=== PATIENT | female | born 1940 | race Caucasian/White ===

== ENCOUNTER 2018-09-21 08:16 | Observation (INO) | payer MEDICARE, OTHER ==
[2018-09-21] VITALS (9 sets, daily range): BP systolic 87–124; BP diastolic 47–87
[~2018-09-21] VITALS: Ht 170.2 cm; Wt 59.0 kg
--- OUTSIDE RECORDS SUMMARY | 2018-09-21 08:22 | XMS REPORT | Continuity of Care Document ---
Author Organization Unknown Address Unknown Allergies There is no data. Medications There is no data. Problems There is no data. Procedures Code Description Performed By Performed On [id number] CONSULT TO CARE PROGRESSION 08/04/2018 [id number] NOTIFY PHYSICIAN 08/04/2018 NUR6 ACTIVITY ORDER 08/04/2018 UVE271 BLADDER SCANNING ALGORITHM 08/04/2018 COD2 FULL CODE 08/04/2018 DIET24 DIET 08/04/2018 WSS343 NURSING COMMUNICATION 08/04/2018 ADT70 ADMIT TO SWING BED 08/04/2018 [id number] CONSULT TO CARE PROGRESSION 08/04/2018 DEF545 REASON FOR NO VTE PROPHYLAXIS - PHARMACOLOGICAL 08/04/2018 HZS707 REASON FOR NO VTE PROPHYLAXIS - MECHANICAL 08/04/2018 NUE034 NURSING COMMUNICATION 08/04/2018 PJR900 DAILY WEIGHTS 08/04/2018 OT1 OT EVAL AND TREAT 08/04/2018 PT4 PT EVAL AND TREAT 08/04/2018 SLP2 BLOCKER HEATED METAL FORMS EVAL AND TREAT 08/04/2018 DNS1 DIETARY NUTRITION SUPPLEMENTS 08/04/2018 HFS642 VITAL SIGNS 08/05/2018 DNS1 DIETARY NUTRITION SUPPLEMENTS 08/05/2018 [id number] BASIC METABOLIC PANEL 08/05/2018 AXR774 DIAGNOSIS QUERY 08/05/2018 DNS1 DIETARY NUTRITION SUPPLEMENTS 08/05/2018 DNS1 DIETARY NUTRITION SUPPLEMENTS 08/05/2018 DNS1 DIETARY NUTRITION SUPPLEMENTS 08/06/2018 DNS1 DIETARY NUTRITION SUPPLEMENTS 08/06/2018 DNS1 DIETARY NUTRITION SUPPLEMENTS 08/06/2018 DNS1 DIETARY NUTRITION SUPPLEMENTS 08/07/2018 DNS1 DIETARY NUTRITION SUPPLEMENTS 08/07/2018 DNS1 DIETARY NUTRITION SUPPLEMENTS 08/07/2018 DNS1 DIETARY NUTRITION SUPPLEMENTS 08/08/2018 DNS1 DIETARY NUTRITION SUPPLEMENTS 08/08/2018 DNS1 DIETARY NUTRITION SUPPLEMENTS 08/08/2018 DNS1 DIETARY NUTRITION SUPPLEMENTS 08/09/2018 DNS1 DIETARY NUTRITION SUPPLEMENTS 08/09/2018 DNS1 DIETARY NUTRITION SUPPLEMENTS 08/09/2018 DNS1 DIETARY NUTRITION SUPPLEMENTS 08/10/2018 DNS1 DIETARY NUTRITION SUPPLEMENTS 08/10/2018 DNS1 DIETARY NUTRITION SUPPLEMENTS 08/10/2018 DNS1 DIETARY NUTRITION SUPPLEMENTS 08/11/2018 DNS1 DIETARY NUTRITION SUPPLEMENTS 08/11/2018 DNS1 DIETARY NUTRITION SUPPLEMENTS 08/11/2018 [id number] BASIC METABOLIC PANEL 08/11/2018 DNS1 DIETARY NUTRITION SUPPLEMENTS 08/12/2018 DNS1 DIETARY NUTRITION SUPPLEMENTS 08/12/2018 DNS1 DIETARY NUTRITION SUPPLEMENTS 08/12/2018 DNS1 DIETARY NUTRITION SUPPLEMENTS 08/13/2018 UDV450 NOTIFY PHYSICIAN 08/13/2018 ZLN161 HEIGHT AND WEIGHT 08/13/2018 EVA103 VITAL SIGNS 08/13/2018 LPB706 APPLY WARMING BLANKET 08/13/2018 [id number] STONE ANALYSIS URINARY 08/13/2018 [id number] STONE ANALYSIS URINARY 08/13/2018 ADT8 DISCHARGE PATIENT 08/13/2018 OMB189 MEASURE BLOOD PRESSURE 08/13/2018 LQX926 VITAL SIGNS 08/13/2018 FVD589 NOTIFY PHYSICIAN 08/13/2018 QLU932 NURSING COMMUNICATION 08/13/2018 HVN720 NURSING OXYGEN ORDERS/INSTRUCTIONS 08/13/2018 AOK110 CONTINUOUS PULSE OXIMETRY 08/13/2018 DCO921 APPLY WARMING BLANKET 08/13/2018 KFU970 GLUCOSE POC 08/13/2018 DNS1 DIETARY NUTRITION SUPPLEMENTS 08/13/2018 [id number] CANDIDO RECOMMENDATION ORDER 08/13/2018 XET570 NURSING COMMUNICATION 08/13/2018 QOB1974 URINALYSIS REFLEX 08/13/2018 VUS0111 CULTURE, URINE 08/14/2018 WEK9673 URINALYSIS REFLEX 08/14/2018 FMG7892 URINALYSIS MICROSCOPIC ONLY 08/14/2018 DNS1 DIETARY NUTRITION SUPPLEMENTS 08/14/2018 [id number] CBC AND DIFF (MANUAL DIFF IF NECESSARY) 08/14/2018 [id number] COMPREHENSIVE METABOLIC PANEL 08/14/2018 [id number] CBC AND DIFF (MANUAL DIFF IF NECESSARY) 08/14/2018 [id number] COMPREHENSIVE METABOLIC PANEL 08/14/2018 DNS1 DIETARY NUTRITION SUPPLEMENTS 08/14/2018 COD2 FULL CODE 08/14/2018 [id number] CBC AND DIFF (MANUAL DIFF IF NECESSARY) 08/14/2018 [id number] CULTURE, BLOOD 08/14/2018 ZLR5453 CULTURE, BLOOD 08/14/2018 DNS1 DIETARY NUTRITION SUPPLEMENTS 08/14/2018 DNS1 DIETARY NUTRITION SUPPLEMENTS 08/15/2018 [id number] CBC AND DIFF (MANUAL DIFF IF NECESSARY) 08/15/2018 DNS1 DIETARY NUTRITION SUPPLEMENTS 08/15/2018 DNS1 DIETARY NUTRITION SUPPLEMENTS 08/15/2018 DNS1 DIETARY NUTRITION SUPPLEMENTS 08/16/2018 DNS1 DIETARY NUTRITION SUPPLEMENTS 08/16/2018 DNS1 DIETARY NUTRITION SUPPLEMENTS 08/16/2018 [id number] BASIC METABOLIC PANEL 08/17/2018 HKR0493 CBC AND DIFF (MANUAL DIFF IF NECESSARY) 08/17/2018 DNS1 DIETARY NUTRITION SUPPLEMENTS 08/17/2018 DNS1 DIETARY NUTRITION SUPPLEMENTS 08/17/2018 DNS1 DIETARY NUTRITION SUPPLEMENTS 08/17/2018 [id number] BASIC METABOLIC PANEL 08/18/2018 CWI0186 CBC AND DIFF (MANUAL DIFF IF NECESSARY) 08/18/2018 DNS1 DIETARY NUTRITION SUPPLEMENTS 08/18/2018 DNS1 DIETARY NUTRITION SUPPLEMENTS 08/18/2018 DNS1 DIETARY NUTRITION SUPPLEMENTS 08/18/2018 DNS1 DIETARY NUTRITION SUPPLEMENTS 08/19/2018 DNS1 DIETARY NUTRITION SUPPLEMENTS 08/19/2018 DIET24 DIET 08/19/2018 VWN767 ACTIVITY TOLERATED 08/19/2018 FFG530 FOLLOW UP PRIMARY PHYSICIAN 08/19/2018 MFP400 NURSING COMMUNICATION 08/19/2018 PQV090 PATIENT MAY SHOWER 08/19/2018 XZV811 DISCHARGE FOLLOW UP 08/19/2018 ADT8 DISCHARGE PATIENT 08/19/2018 Results Test Result Range STONE ANALYSIS URINARY - 08/13/18 09:54 Disclaimer: Comment NRG Stone Ca oxalate monohydr 55 NRG Stone Calcium phosphate 35 NRG Stone Color Maldonado NRG Stone Comment Comment NRG Stone Composition Comment NRG Stone MG radhika phos 10 NRG Stone Nidus No Nidus visualized NRG Stone Comment Comment NRG Stone Size Comment NRG Stone Weight 116.1 NRG URINALYSIS REFLEX - 08/14/18 01:55 APPEARANCE, URINE Yellow NRG GLUCOSE URINE Negative Negative BILIRUBIN URINE Negative Negative KETONES URINE Negative Negative SPECIFIC GRAVITY UA 1.010 TX 1.001-1.030 HEMOGLOBIN URINE Large Negative PH URINE 7.0 TX 5.0-8.0 PROTEIN URINE QUAL >300 Negative UROBILINOGEN URINE Negative Negative NITRITE URINE Negative Negative LEUKOCYTE ESTERASE Positive Negative URINALYSIS MICROSCOPIC ONLY - 08/14/18 01:55 MICROSCOPIC RBC URINE 6 - 10 0-5 MICROSCOPIC WBC URINE >40 0-5 EPITHELIAL CELLS Small Absent HYALINE CAST Absent Absent BACTERIA Absent Absent COMPREHENSIVE METABOLIC PANEL - 08/14/18 09:05 Alanine Aminotransferase 25 0-34 Albumin 3.4 3.5-5.0 Alkaline Phosphatase 112 42-140 Aspartate Aminotransferase 59 15-46 Blood Urea Nitrogen 23 7-26 Chloride 102 96-112 Carbon Dioxide 24 20-32 Creatinine 1.1 0.4-1.1 Glucose 186 70-100 Potassium 3.8 3.5-5.3 Sodium 136 133-147 Calcium 9.1 8.4-10.5 Anion Gap 11 TX 5-17 Protein Total Serum 6.5 6.0-8.2 BILIRUBIN TOTAL 1.3 0.2-1.3 GFR FEMALE AA 58 60-200 GFR FEMALE NON-AA 48 60-200 CBC AND DIFF (MANUAL DIFF IF NECESSARY) - 08/14/18 09:05 WBC 22.10 4.00-11.00 Hematocrit 36 36-45 Hemoglobin 11.5 12.0-15.0 MCH 27 27-34 MCHC 32 32-36 MCV 85 80-99 MPV 9.3 9.4-12.3 Platelet Count 285 140-400 RBC 4.19 4.00-5.00 RDW 17.4 9.0-14.5 % NEUTROPHILS 92 45-78 %LYMPHOCYTES 3 15-47 %MONOCYTES 4 0-12 %EOSINOPHILS 1 0-7 %BASOPHILS 0 0-2 # GRANULOCYTES 20.38 1.70-6.80 # LYMPHOCYTES 0.63 1.00-3.30 # MONOCYTES 0.81 0.20-0.90 # EOSINOPHILS 0.24 0.00-0.40 # BASOPHILS 0.04 0.00-0.10 CULTURE, BLOOD - 08/14/18 12:11 Culture result No Growth at 5 days NRG CULTURE, BLOOD - 08/14/18 12:35 Culture result No Growth at 5 days NRG CBC AND DIFF (MANUAL DIFF IF NECESSARY) - 08/15/18 05:25 WBC 12.96 4.00-11.00 Hematocrit 31 36-45 Hemoglobin 9.8 12.0-15.0 MCH 27 27-34 MCHC 32 32-36 MCV 85 80-99 MPV 9.1 9.4-12.3 Platelet Count 239 140-400 RBC 3.59 4.00-5.00 RDW 16.9 9.0-14.5 % NEUTROPHILS 78 45-78 %LYMPHOCYTES 8 15-47 %MONOCYTES 10 0-12 %EOSINOPHILS 4 0-7 %BASOPHILS 0 0-2 # GRANULOCYTES 10.09 1.70-6.80 # LYMPHOCYTES 1.01 1.00-3.30 # MONOCYTES 1.34 0.20-0.90 # EOSINOPHILS 0.49 0.00-0.40 # BASOPHILS 0.03 0.00-0.10 CBC AND DIFF (MANUAL DIFF IF NECESSARY) - 08/18/18 03:40 WBC 8.52 4.00-11.00 Hematocrit 34 36-45 Hemoglobin 11.3 12.0-15.0 MCH 28 27-34 MCHC 33 32-36 MCV 85 80-99 MPV 9.3 9.4-12.3 Platelet Count 355 140-400 RBC 4.07 4.00-5.00 RDW 16.5 9.0-14.5 % NEUTROPHILS 72 45-78 %LYMPHOCYTES 13 15-47 %MONOCYTES 9 0-12 %EOSINOPHILS 5 0-7 %BASOPHILS 1 0-2 # GRANULOCYTES 6.16 1.70-6.80 # LYMPHOCYTES 1.10 1.00-3.30 # MONOCYTES 0.77 0.20-0.90 # EOSINOPHILS 0.45 0.00-0.40 # BASOPHILS 0.04 0.00-0.10 BASIC METABOLIC PANEL - 08/18/18 03:40 Blood Urea Nitrogen 30 7-26 Chloride 106 96-112 Carbon Dioxide 27 20-32 Creatinine 0.8 0.4-1.1 Glucose 98 70-100 Potassium 4.1 3.5-5.3 Sodium 140 133-147 Calcium 9.1 8.4-10.5 Anion Gap 7 TX 5-17 GFR FEMALE AA 83 60-200 GFR FEMALE NON-AA 69 60-200 Encounters ACCT No. Visit Date/Time Discharge Status Pt. Type Provider Facility Loc./Unit Complaint [id number] 09/21/2018 08:00:00 ACT Outpatient [facility] [id number] 08/19/2018 14:56:08 08/19/2018 23:59:59 CLS Outpatient [id number] 08/04/2018 13:54:21 08/19/2018 12:53:00 DIS Inpatient SANCHEZ YUSUF MS Hypokalemia [id number] 08/13/2018 07:08:00 08/13/2018 12:25:00 DIS Outpatient CHARU MANNING [facility] LEFT KIDNEY STONE N20.0 [id number] 08/25/2018 10:08:18 Document Registration [id number] 08/20/2018 16:49:13 Document Registration [id number] 08/13/2018 08:39:16 Document Registration
--- OUTSIDE RECORDS SUMMARY | 2018-09-21 08:22 | XMS REPORT | CCD ---
Author Any Curiel Organization [facility] Address [facility] [place] [address] Phone Care Team Providers Care Mixed Livestock Farmer Name Role Phone PP Unavailable CCM Unavailable Summary Purpose Interface Exchange Insurance Providers Payer name Policy type / Coverage type Covered libertarian ID Effective Begin Date Effective End Date WPS Medicare Part B Medicare Part B [id number] Unknown Unknown [facility] Poached [employer] INSUR Medicare Part B [id number] Unknown Unknown Family history Mother Diagnosis Age At Onset Cancer Unknown Father Diagnosis Age At Onset other Unknown Social History Social History Element Codes Description Effective Dates Marital status Unknown 09/08/2018 Number of children Unknown 2 09/08/2018 Employment Unknown Retired 09/08/[address]: 4412665 Quit over 10 years ago 11-04-1991 09/08/[address]: 867667825 Never drinks alcohol 09/08/2018 Allergies, Adverse Reactions, Alerts Substance Reaction Codes Entered Date Inactivated Date Status * NO KNOWN DRUG ALLERGIES Unknown 09/08/2018 No Inactive Date Active Past Medical History Illness Codes Condition Status Onset Date Resolved Date Mixed hyperlipidemia ICD- 9: 272.2 ICD-10: E78.2 Active 09/09/2018 Unknown Mixed incontinence ICD- 9: 788.33 ICD-10: N39.46 Active 09/09/2018 Unknown Multiple sclerosis ICD- 9: 340 ICD-10: G35 Active 09/09/2018 Unknown Personal history of urinary (tract) infections ICD-9: V13.02 ICD-10: Z87.440 Active 09/09/2018 Unknown Problems Condition Codes Effective Dates Condition Status Mixed hyperlipidemia ICD- 9: 272.2 ICD-10: E78.2 09/09/2018 Active Mixed incontinence ICD- 9: 788.33 ICD-10: N39.46 09/09/2018 Active Multiple sclerosis ICD- 9: 340 ICD-10: G35 09/09/2018 Active Personal history of urinary (tract) infections ICD-9: V13.02 ICD-10: Z87.440 09/09/2018 Active Medications Medication Codes Instructions Start Date Stop Date Status Fill Instructions Tylenol 325 mg tablet RxNorm: 345546 -2 Tablet(s) PO Q6 as needed No Start Date Active Colace 100 mg capsule RxNorm: 4290362 1 Capsule(s) PO daily No Start Date Active Boniva 150 mg tablet RxNorm: 712824 1 Tablet(s) PO monthly No Start Date Active atorvastatin 40 mg tablet RxNorm: 503029 1 Tablet(s) PO QHS No Start Date Active Vitamin D2 1,000 unit capsule RxNorm: 308260 1 Capsule(s) PO daily No Start Date Active oxybutynin chloride 5 mg tablet RxNorm: 643680 1 Tablet(s) PO TID No Start Date Active Medication Administered No Medication Administered data Immunizations No Immunization data Assessments Condition Codes Effective Dates Mixed hyperlipidemia ICD-10: E78.2 ICD-9: 272.2 09/09/2018 Personal history of urinary (tract) infections ICD-10: Z87.440 ICD-9: V13.02 09/09/2018 Multiple sclerosis ICD-10: G35 ICD-9: 340 09/09/2018 Mixed incontinence ICD-10: N39.46 ICD-9: 788.33 09/09/2018 Reason For Visit Reason For Visit Effective Dates Notes memory loss 09/09/2018 recurring UTI Results No Results data Review of Systems System Result Effective Dates Constitutional recent illness 09/09/2018 Constitutional No chills 09/09/2018 Constitutional fatigue 09/09/2018 Constitutional No fever 09/09/2018 Constitutional No insomnia 09/09/2018 Constitutional No malaise 09/09/2018 Eyes No vision change 09/09/2018 Ears/Nose/Throat/Neck No dental pain 09/09/2018 Ears/Nose/Throat/Neck No dizziness 09/09/2018 Ears/Nose/Throat/Neck No dysphagia 09/09/2018 Ears/Nose/Throat/Neck No headache 09/09/2018 Ears/Nose/Throat/Neck No hearing loss 09/09/2018 Ears/Nose/Throat/Neck No nasal allergies 09/09/2018 Ears/Nose/Throat/Neck No sore throat 09/09/2018 Ears/Nose/Throat/Neck No postnasal drip 09/09/2018 Ears/Nose/Throat/Neck No sinus congestion 09/09/2018 Cardiovascular No chest pain/pressure 09/09/2018 Cardiovascular No dyspnea 09/09/2018 Cardiovascular No edema 09/09/2018 Cardiovascular No exercise intolerance 09/09/2018 Cardiovascular No fatigue 09/09/2018 Cardiovascular No near-syncope/dizziness 09/09/2018 Respiratory No chest tightness 09/09/2018 Respiratory No cough 09/09/2018 Respiratory No dyspnea 09/09/2018 Respiratory No pedal edema 09/09/2018 Gastrointestinal No abdominal pain 09/09/2018 Gastrointestinal No constipation 09/09/2018 Gastrointestinal No diarrhea 09/09/2018 Gastrointestinal No gastroesophageal reflux 09/09/2018 Gastrointestinal No nausea 09/09/2018 Gastrointestinal No vomiting 09/09/2018 Genitourinary/Nephrology No dysuria 09/09/2018 Genitourinary/Nephrology No nocturia 09/09/2018 Genitourinary/Nephrology No urinary incontinence 09/09/2018 Musculoskeletal No stiffness 09/09/2018 Musculoskeletal No swelling 09/09/2018 Musculoskeletal muscle weakness 09/09/2018 Musculoskeletal No myalgias 09/09/2018 Dermatologic No rash 09/09/2018 Dermatologic sores 09/09/2018 Neurologic No dizziness 09/09/2018 Neurologic No headache 09/09/2018 Neurologic No neck pain 09/09/2018 Neurologic No syncope 09/09/2018 Psychiatric No anxiety 09/09/2018 Psychiatric No depression 09/09/2018 Psychiatric disturbances of memory 09/09/2018 Neurologic memory loss 09/09/2018 Neurologic weakness 09/09/2018 Physical Exam Exam Name System Name Item Name Status Result Effective Dates Notes Full Exam - General 1994 Constitutional general appearance Development: well developed 09/09/2018 None Full Exam - General 1994 Constitutional general appearance Development: appears stated age 0509/09/2018 None Full Exam - General 1994 Constitutional general appearance Hygiene/Attention to Grooming: good hygiene 09/09/2018 None Full Exam - General 1994 Eyes conjunctiva/eyelids Overall: conjunctiva clear 09/09/2018 None Full Exam - General 1994 Eyes conjunctiva/eyelids Overall: cornea clear 09/09/2018 None Full Exam - General 1994 Eyes conjunctiva/eyelids Overall: eyelids normal 09/09/2018 None Full Exam - General 1994 Eyes pupils and irises Overall: pupils equal, round, reactive to light and accomodation 09/09/2018 None Full Exam - General 1994 Ears/Nose/Throat otoscopic exam Overall: external auditory canals clear 09/09/2018 None Full Exam - General 1994 Ears/Nose/Throat lips/teeth/gingiva Overall: benign lips 09/09/2018 None Full Exam - General 1994 Ears/Nose/Throat lips/teeth/gingiva Overall: normal dentition 09/09/2018 None Full Exam - General 1995 Ears/Nose/Throat oral cavity/pharynx/larynx Overall: oral mucosa clear 09/09/2018 None Full Exam - General 1994 Ears/Nose/Throat oral cavity/pharynx/larynx Overall: oropharyngeal mucosa clear 09/09/2018 None Full Exam - General 1994 Ears/Nose/Throat oral cavity/pharynx/larynx Overall: hypopharynx benign 09/09/2018 None Full Exam - General 1994 Ears/Nose/Throat oral cavity/pharynx/larynx Overall: no masses 09/09/2018 None Full Exam - General 1994 Respiratory auscultation Overall: breath sounds clear bilaterally 09/09/2018 None Full Exam - General 1994 Respiratory respiratory effort/rhythm Overall: no retractions 09/09/2018 None Full Exam - General 1994 Respiratory respiratory effort/rhythm Overall: normal rate 09/09/2018 None Full Exam - General 1994 Cardiovascular extremities Overall: no clubbing 09/09/2018 None Full Exam - General 1994 Cardiovascular auscultation of heart Overall: regular rate 09/09/2018 None Full Exam - General 1994 Cardiovascular auscultation of heart Overall: normal heart sounds 09/09/2018 None Full Exam - General 1994 Abdomen abdominal exam Overall: no tenderness 09/09/2018 None Full Exam - General 1994 Abdomen abdominal exam Overall: normal bowel sounds 09/09/2018 None Full Exam - General 1994 Lymphatic neck nodes Overall: anterior cervical chain benign 09/09/2018 None Full Exam - General 1994 Lymphatic neck nodes Overall: posterior cervical chain benign 09/09/2018 None Full Exam - General 1994 Musculoskeletal head and neck Overall: head atraumatic 09/09/2018 None Full Exam - General 1994 Musculoskeletal head and neck Overall: cervical spine benign 09/09/2018 None Full Exam - General 1994 Neurologic cranial nerves Overall: crainial nerves 2 - 12 grossly intact 09/09/2018 None Full Exam - General 1994 Psychiatric orientation/consciousness Overall: oriented to person, place and time 09/09/2018 None Full Exam - General 1994 Psychiatric mood and affect Overall: normal mood and affect 09/09/2018 None Full Exam - General 1994 Musculoskeletal spine, ribs and pelvis Posture: lordosis 09/09/2018 None Full Exam - General 1994 Musculoskeletal spine, ribs and pelvis Posture: kyphosis 09/09/2018 None Full Exam - General 1994 Integument inspection of skin Location: right foot 09/09/2018 small 0.25 cm on dorsum of right foot - healing - larger lesion medially - healing ulceration Full Exam - General 1994 Ears/Nose/Throat otoscopic exam Tympanic membrane: tympanosclerosis 09/09/2018 None Full Exam - General 1994 Constitutional general appearance Assistive Device: wheelchair 09/09/2018 None Procedures No Procedures data Vital Signs Date Vital 09/09/2018 Blood Pressure 1: 136/70 Code: 8480-6 Heart Rate 1: 59 bpm Height: 5'8" SpO2: 98% Weight: Functional Status No Functional Status data History of Present Illness Symptom Name Status Result Effective Date Notes Onset of Symptom during adulthood 09/09/2018 None Quality intermittent 09/09/2018 None Advance Directives No Advance Directive data Encounters Encounter Performer Location Codes Date () OFFICE VISIT, [facility] - LEVEL 4 Diagnosis: Multiple sclerosis[ICD10: G35] Diagnosis: Personal history of urinary (tract) infections[ICD10: Z87.440] Diagnosis: Mixed hyperlipidemia[ICD10: E78.2] Diagnosis: Mixed incontinence[ICD10: N39.46] [facility] CPT- 4: [id number] 09/09/2018 Plan of Care Planned Activity Notes Codes Status Date Visit Plan: Multiple sclerosis - relapsing remitting type of MS - I have recommended patient to continue with institutional care, we need to try to prevent illness/infections as this tends to incite recurrent MS symptoms. Hyperlipidemia - pt has been counseled about appropriate diet, exercise, and need for low fat food choices. I have discussed the need for the patient to take medications as prescribed. If the patient has negative side effects from the medication, they are to CALL the office and not abruptly discontinue the medication without discussion with a practitioner in the office. We will check labs in 3-6 months for follow up on the patient's chronic medical problem and to assure normal liver response to medications. HX of recurrent urinary tract infection - Recommended pt to be started on Trimethoprim 100mg daily - monitor symptoms of recurrent infection - this should help to prevent chronic recurrent infections. Urinary incontinence - discussed with patient and her DTR - no change right now in her medication- we may need to adjust her medications - RX given to dtr for poise pads. 09/09/2018 Patient Education: Patient Medication Summary Completed 09/09/2018 Patient Education: Cholesterol Management Completed 09/09/2018 Instructions Comment . Multiple sclerosis - relapsing remitting type of MS - I have recommended patient to continue with institutional care, we need to try to prevent illness/infections as this tends to incite recurrent MS symptoms. Hyperlipidemia - pt has been counseled about appropriate diet, exercise, and need for low fat food choices. I have discussed the need for the patient to take medications as prescribed. If the patient has negative side effects from the medication, they are to CALL the office and not abruptly discontinue the medication without discussion with a practitioner in the office. We will check labs in 3-6 months for follow up on the patient's chronic medical problem and to assure normal liver response to medications. HX of recurrent urinary tract infection - Recommended pt to be started on Trimethoprim 100mg daily - monitor symptoms of recurrent infection - this should help to prevent chronic recurrent infections. Urinary incontinence - discussed with patient and her DTR - no change right now in her medication- we may need to adjust her medications - RX given to dtr for poise pads.
[2018-09-21] MEDS ORDERED: NITROGLYCERIN 0.4 MG SL TABS BTL 25'S SL PRN (08:45)
[2018-09-21] MEDS ORDERED: ASPIRIN 81 MG CHEW (CHILDREN'S ASA) PO ONE (08:45)
--- NOTE | 2018-09-21 09:06 | Diagnostic Imaging Report ---
INDICATION: Chest pain. TECHNIQUE: Single view chest 8:57 AM. CORRELATION STUDY: None FINDINGS: The heart size, mediastinal configuration and pulmonary vascularity are within normal limits. Lung meadows hyperinflated. Minimal discoid atelectasis and/or scarring about the bilateral lung base. No pulmonary infiltrate. IMPRESSION: 1. Hyperinflated lung meadows. Negative for acute bony abnormality. Dictated by: Dictated on workstation # [id number]
[2018-09-21] MEDS ORDERED: AMOX875T2 (09:08)
[2018-09-21] MEDS ORDERED: IBAN150T8 PO (09:08)
[2018-09-21] MEDS ORDERED: TRIM100T PO (09:08)
[2018-09-21] MEDS ORDERED: NITR100C10 (09:08)
[2018-09-21 09:09] LABS: INR 0.9 (0.8-1.4); PROTHROMBIN TIME PATIENT 12.9 SEC (12.2-14.7)
[2018-09-21 09:16] LABS: BASOPHILS % (AUTO) 0 % (0-10); EOSINOPHILS # (AUTO) 0.1 10^3/uL (0.0-0.3); EOSINOPHILS % (AUTO) 0 % (0-10); HEMATOCRIT 41 % (35-52); HEMOGLOBIN 13.5 G/DL (11.5-16.0); LYMPHOCYTES # (AUTO) 1.1 X 10^3 (1.0-4.0); LYMPHOCYTES % (AUTO) 9 % (12-44); MEAN CORPUSCULAR HEMOGLOBIN 27 PG (25-34); MEAN CORPUSCULAR HGB CONC 33 G/DL (32-36); MEAN CORPUSCULAR VOLUME 81 FL (80-99); MEAN PLATELET VOLUME 9.7 FL (7.4-10.4); MONOCYTES # (AUTO) 0.8 X 10^3 (0.0-1.0); MONOCYTES % (AUTO) 7 % (0-12); NEUTROPHILS # (AUTO) 9.4 X 10^3 (1.8-7.8); NEUTROPHILS % (AUTO) 83 % (42-75); PLATELET COUNT 275 10^3/uL (130-400); RED CELL DISTRIBUTION WIDTH 17.7 % (10.0-14.5); WHITE BLOOD COUNT 11.4 10^3/uL (4.3-11.0)
[2018-09-21] MEDS ORDERED: morphine INJ 10 MG/ML 1ML (SYR OR VIAL) IVP STA ×2 (09:25→09:53)
--- NOTE | 2018-09-21 09:25 | ED Chest Pain ---
General Chief Complaint: Chest Pain Stated Complaint: CHEST PAIN Nursing Triage Note: PT PRESENTS TO ED WITH COMPLAINTS OF CP UNDERNEATH BOTH BREASTS STARTING YESTERDAY. REPORTS IT WAS CONSTANT BUT GOT SIGNIFICANTLY WORSE THIS AM WHEN IT WOKE HER UP FROM SLEEP AT 0400. PT REPORTS INCREASED SOA WELL. Nursing Sepsis Screen: No Definite Risk Source: patient Exam Limitations: no limitations History of Present Illness Date Seen by Provider: September 21, 2018 Time Seen by Provider: 08:40 Initial Comments The patient presents to ER because she woke up this morning with chest pain starting about 5:00 in the morning in her right breast radiating up her right neck. She says it feels like somebody sitting on her chest. She has no history of coronary disease but she did have this same pain and pressure yesterday and she spent most of her time in bed because of it. Yesterday she said it lasted probably less than an hour but would come and go throughout the day. She does not smoke have a history of diabetes or high blood pressure but she does take medicines for cholesterol. No thyroid disorder and no previous workup for coronary disease. She denies sweats nausea vomiting cough shortness of breath or history of lung disease. No GERD or acid reflux. She does have a history of anxiety and her daughter says when they brought her in she became rather anxious and that's when her tingling in fingertips began bilaterally. Allergies and Home Medications Allergies Coded Allergies: No Known Drug Allergies (Unverified , 09/21/18) Patient Home Medication List Home Medication List Reviewed: Yes Review of Systems Review of Systems Constitutional: No chills, No diaphoresis, No malaise EENTM: No Blurred Vision, No Double Vision Respiratory: Denies Cough, Denies Shortness of Air Cardiovascular: See HPI, Chest Pain; Denies Edema, Denies Palpitations; Other (negative for orthopnea) Gastrointestinal: Denies Abdomen Distended, Denies Abdominal Pain Genitourinary: Denies Burning, Denies Discharge Musculoskeletal: No back pain, No joint pain Past Hmggbyw-Yvmegx-Mbcjfa Hx Patient Social History Alcohol Use: Denies Use Recreational Drug Use: No Smoking Status: Former Smoker Former Smoker, Quit: September 24, 1995 Recent Foreign Travel: No Contact w/Someone Who Travel: No Recent Infectious Disease Expo: No Recent Hopitalizations: No Seasonal Allergies Seasonal Allergies: No Past Medical History Surgeries: No Respiratory: No Cardiac: Yes High Cholesterol Neurological: Yes Multiple Sclerosis Genitourinary: Yes UTI-Chronic Gastrointestinal: No Musculoskeletal: Yes Osteoporosis Endocrine: No HEENT: No Cancer: No Psychosocial: No Integumentary: No Blood Disorders: No Physical Exam Vital Signs Vital Signs - First Documented 09/21/18 09/21/18 08:25 08:51 Temp 98.1 Pulse 92 Resp 20 B/P (MAP) 137/101 (113) Pulse Ox 98 O2 Delivery Room Air Capillary Refill : Greater Than 3 Seconds Height, Weight, BMI Height: 5'2.00" Weight: 140lbs. oz. 63.848890sx; BMI Method:Estimated General Appearance: WD/WN, Anxious, Mild Distress HEENT: PERRL/EOMI, Pharynx Normal, Moist Mucous Membranes Neck: Full Range of Motion, Normal Inspection, Non Tender, Supple Respiratory: Chest Non Tender, Lungs Clear, Normal Breath Sounds, No Accessory Muscle Use, No Respiratory Distress Cardiovascular: Regular Rate, Rhythm, No Edema, Normal Peripheral Pulses Gastrointestinal: Normal Bowel Sounds, Non Tender, Soft Neurologic/Psychiatric: Alert, Oriented x3 Skin: Normal Color Progress/Results/Core Measures Results/Orders Lab Results Laboratory Tests Test 09/21/18 08:46 09/21/18 09:08 Range/Units Prothrombin Time 12.9 12.2-14.7 SEC INR Comment 0.9 0.8-1.4 Activated Partial Thromboplast Time 34 24-35 SEC White Blood Count 11.4 H 4.3-11.0 10^3/uL Red Blood Count 5.03 4.35-5.85 10^6/uL Hemoglobin 13.5 11.5-16.0 G/DL Hematocrit 41 35-52 % Mean Corpuscular Volume 81 80-99 FL Mean Corpuscular Hemoglobin 27 25-34 PG Mean Corpuscular Hemoglobin Concent 33 32-36 G/DL Red Cell Distribution Width 17.7 H 10.0-14.5 % Platelet Count 275 130-400 10^3/uL Mean Platelet Volume 9.7 7.4-10.4 FL Neutrophils (%) (Auto) 83 H 42-75 % Lymphocytes (%) (Auto) 9 L 12-44 % Monocytes (%) (Auto) 7 0-12 % Eosinophils (%) (Auto) 0 0-10 % Basophils (%) (Auto) 0 0-10 % Neutrophils # (Auto) 9.4 H 1.8-7.8 X 10^3 Lymphocytes # (Auto) 1.1 1.0-4.0 X 10^3 Monocytes # (Auto) 0.8 0.0-1.0 X 10^3 Eosinophils # (Auto) 0.1 0.0-0.3 10^3/uL Basophils # (Auto) 0.0 0.0-0.1 10^3/uL Sodium Level 139 135-145 MMOL/L Potassium Level 3.7 3.6-5.0 MMOL/L Chloride Level 105 98-107 MMOL/L Carbon Dioxide Level 18 L 21-32 MMOL/L Anion Gap 16 H 5-14 MMOL/L Blood Urea Nitrogen 20 H 7-18 MG/DL Creatinine 0.89 0.60-1.30 MG/DL Estimat Glomerular Filtration Rate > 60 BUN/Creatinine Ratio 22 Glucose Level 103 70-105 MG/DL Calcium Level 9.9 8.5-10.1 MG/DL Corrected Calcium 9.8 8.5-10.1 MG/DL Magnesium Level 2.0 1.8-2.4 MG/DL Total Bilirubin 2.1 H 0.1-1.0 MG/DL Aspartate Amino Transf (AST/SGOT) 50 H 5-34 U/L Alanine Aminotransferase (ALT/SGPT) 14 0-55 U/L Alkaline Phosphatase 123 40-136 U/L Myoglobin 40.0 10.0-92.0 NG/ML Troponin I < 0.028 <0.028 NG/ML B-Type Natriuretic Peptide 18.4 <100.0 PG/ML Total Protein 7.1 6.4-8.2 GM/DL Albumin 4.1 3.2-4.5 GM/DL Lipase 12 8-78 U/L My Orders Orders - ELIS,CARLOS J Cbc With Automated Diff (09/21/18 08:42) Magnesium (09/21/18 08:42) Chest 1 View, Ap/Pa Only (09/21/18 08:42) Ekg Tracing (09/21/18 08:42) Cardiac Profile 1 (09/21/18 08:42) Comprehensive Metabolic Panel (09/21/18 08:42) Myoglobin Serum (09/21/18 08:42) Protime With Inr (09/21/18 08:42) Partial Thromboplastin Time (09/21/18 08:42) O2 (09/21/18 08:42) Monitor-Rhythm Ecg Trace Only (09/21/18 08:42) Lipid Panel (09/22/18 06:00) Ed Iv/Invasive Line Start (09/21/18 08:42) Lipase (09/21/18 08:42) BNP (09/21/18 08:42) Aspirin Chewable Tablet (Baby Aspirin Ch (09/21/18 08:45) Nitroglycerin 0.4 Mg Btl 25's (Nitrostat (09/21/18 08:45) Morphine Injection (Morphine Injection (09/21/18 09:25) Lactated Ringers (Lr 1000 Ml Iv Solution (09/21/18 09:30) Ct Angio Chest W (09/21/18 09:51) Morphine Injection (Morphine Injection (09/21/18 09:53) Fentanyl Injection (Sublimaze Injection (09/21/18 10:15) Iohexol Injection (Omnipaque 350 Mg/Ml 1 (09/21/18 10:15) Received Contrast (Hold Metformin- Contr (09/21/18 10:15) Ns (Ivpb) (Sodium Chloride 0.9%) (09/21/18 10:15) Lorazepam Injection (Ativan Injection) (09/21/18 10:09) Medications Given in ED Current Medications Medications Dose Ordered Sig/Rogelio Route Start Time Stop Time Status Last Admin Dose Admin Aspirin 324 mg ONCE ONCE PO 09/21/18 08:45 09/21/18 08:47 DC 09/21/18 08:56 324 MG Iohexol 125 ml ONCE ONCE IV 09/21/18 10:15 09/21/18 10:16 DC 09/21/18 11:45 125 ML Lactated Ringer's 1,000 ml @ ud STK-MED ONCE IV 09/21/18 09:30 09/21/18 09:35 DC 09/21/18 09:37 999 MLS/HR Lorazepam 2 mg STK-MED ONCE .ROUTE 09/21/18 10:09 09/21/18 10:13 DC 09/21/18 10:23 0.5 MG Nitroglycerin 0.4 mg NEEDED PRN SL 09/21/18 08:45 09/21/18 08:56 0.4 MG Sodium Chloride 250 ml ONCE ONCE IV 09/21/18 10:15 09/21/18 10:16 DC 09/21/18 11:45 80 ML Vital Signs/I&O 09/21/18 09/21/18 08:25 08:51 Temp 98.1 Pulse 92 Resp 20 B/P (MAP) 137/101 (113) Pulse Ox 98 O2 Delivery Room Air Blood Pressure Mean: 113 Progress Progress Note #1: Time: 09:28 Progress Note First dose of nitroglycerin did nothing for her pain so we'll give her 6 mg morphine. Her blood pressure is 112/83. Respiratory vital signs are okay and she has no tachycardia nor hypoxia noted. No history suggesting pulmonary embolism. ED ACS 21 points. Not low risk. This patient is not a candidate for early discharge and should receive a standard chest pain evaluation with delayed troponin testing. Progress Note #2: Time: 12:04 Progress Note Morphine did not help the patient's pain so we gave her another 4 mg of morphine which still did not help. She's having quite a bit of anxiety about being here and so we elected to try half a milligram of Ativan IV instead of more opiates which worked to decrease her anxiety and made her comfortable enough to sleep. Initial troponin negative. CT angiogram was obtained on the ground that she said the pain was radiating through to her back. Did not demonstrate an AAA or pulmonary embolism. A further cardiac workup would be reasonable. Other possibilities include gastrointestinal we did not actually give her a GI cocktail. This could also be having something organic to her back. We discussed the potential hemangioma of the liver and right upper lobe lung nodule with the daughter and the recommendation for repeat CT in 6 months for reevaluation after consultation primary care. Initial ECG Impression Date: September 21, 2018 Initial ECG Impression Time: 08:27 Initial ECG Rate: 76 Initial ECG Rhythm: Normal Sinus Initial ECG Intervals: Normal Initial ECG Impression: Normal, Nonspecific Changes Initial ECG Comparisson: No Previous ECG Available Comment Normal sinus rhythm with left deviated mean electrical axis but no ST elevation or depression. Diagnostic Imaging Diagonstic Imaging: Xray Plain Films/CT/US/NM/MRI: chest Comments [facility] [place], [place] NAME: BIJAL DOSS REC#: [id number] PT STATUS: REG ER : 1940 PHYSICIAN: CARLOS GILLIS MD ADMIT DATE: 09/21/18/ER Draft Date of Exam:09/21/18 CHEST 1 VIEW, AP/PA ONLY INDICATION: Chest pain. TECHNIQUE: Single view chest 8:57 AM. CORRELATION STUDY: None FINDINGS: The heart size, mediastinal configuration and pulmonary vascularity are within normal limits. Lung meadows hyperinflated. Minimal discoid atelectasis and/or scarring about the bilateral lung base. No pulmonary infiltrate. IMPRESSION: 1. Hyperinflated lung meadows. Negative for acute bony abnormality. Dictated on workstation # [id number] Dict: 09/21/18902 Trans: 09/21/18905 [id number] Interpreted by: SRINIVAS WALLACE DO Electronically signed by: Reviewed: Reviewed by Ma Diagonstic Imaging: CT (angiogram) Plain Films/CT/US/NM/MRI: chest Comments NAME: BIJAL DOSS Astley Clarke [facility] REC#: [id number] PHYSICIAN: CARLOS GILLIS MD CC: EDUARD RAHMAN MD; CARLOS GILLIS Page 2 of 2 RADIOLOGY REPORT [facility] [place] [place], [place] CC: EDUARD RAHMAN MD; CARLOS GILLIS Page 1 of 2 RADIOLOGY REPORT NAME: BIJAL DOSS Astley Clarke [facility] REC#: [id number] PT STATUS: REG ER : 1940 PHYSICIAN: CARLOS GILLIS MD ADMIT DATE: 09/21/18/ER Signed Date of Exam: 09/21/18 CT ANGIO CHEST W PROCEDURE: CT angiography of the chest with contrast. TECHNIQUE: Multiple contiguous axial images were obtained through the chest after uneventful bolus administration of intravenous contrast. 2D reconstructed CTA MIP acquisitions were also performed. Auto Exposure Controls were utilized during the CT exam to meet ALARA standards for radiation dose reduction. INDICATION: Chest pain, shortness of breath. Comparison made with a radiograph from earlier in the same day. FINDINGS: There is adequate opacification of the pulmonary arterial system for diagnostic evaluation with no evidence of a filling defect within the pulmonary arteries to suggest embolism. The thoracic aorta demonstrates no evidence of dissection or aneurysm. There is no pericardial collection. There are no pathologically enlarged mediastinal, hilar or axillary lymph nodes. Lungs are hyperinflated with findings of mild centrilobular emphysema. There is a 5 mm nodule within the right upper lobe. There is no focal alveolar infiltrate or consolidation. There is no effusion. There is no pneumothorax. The thyroid demonstrates the left thyroid lobe enlargement with a 1.6 cm thyroid nodule. The visualized portion of the upper abdomen demonstrates a hypervascular lesion within the right hepatic dome measuring 11 mm. There also appears to be hepatic steatosis. There are gallstones within the gallbladder. There is no abnormal biliary dilatation. There is no adrenal mass. The kidneys appear nonobstructed. There is a small hiatal hernia. There is no acute or suspicious osseous abnormality evident. There are multilevel degenerative endplate changes present within the thoracic spine. The alignment is normal and vertebral body heights appear maintained. Impression: 1. No CT angiographic evidence of pulmonary embolism. 2. Thoracic aorta unremarkable. 3. Heart size normal. 4. Centrilobular emphysema with a 5 mm right upper lobe pulmonary nodule. Six-month followup could be considered. 5. Enlarged thyroid with left thyroid nodule. 6. Cholelithiasis without biliary dilatation. 7. Hypervascular lesion within the dome of the right hepatic lobe. 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 This could also be reassessed at the patient six-month followup. 8. No acute or suspicious osseous abnormality. Dictated by: Dictated on workstation # [id number] Dict: 09/21/18 1055 Trans: 09/21/18 1131 Interpreted by: EDUARD RAHMAN MD Electronically signed by: EDUARD RAHMAN MD 09/21/18 1131 Reviewed: Reviewed by Me Departure Communication (Admissions) Time/Spoke to Admitting Phy: 12:10 Discussed the case lab EKG imaging and plan with Dr. Foster and she agrees to observe the patient. Time/Spoke to Consulting Phy: 12:50 Discussed case, lab, imaging, EKG findings with Dr. Stevenson and he agrees to observe the patient. Impression Primary Impression: Chest pain Qualified Codes: R07.9 - Chest pain, unspecified Disposition: 09 ADMITTED INPATIENT Condition: Stable Admissions Decision to Admit Reason: Admit from ER (General) Decision to Admit/Date: September 21, 2018 Time/Decision to Admit Time: 11:30 Departure-Patient Inst. Referrals: ALEXIA STYLES MD (PCP/Family) Primary Care Physician CARLOS GILLIS September 21, 2018 09:25
[2018-09-21] MEDS ORDERED: LACTATED RINGERS 1,000 ML IV ONE (09:30)
[2018-09-21 09:37] LABS: ALANINE AMINOTRANSFERASE 14 U/L (0-55); ALBUMIN 4.1 GM/DL (3.2-4.5); ALKALINE PHOSPHATASE 123 U/L (40-136); BILIRUBIN,TOTAL 2.1 MG/DL (0.1-1.0); BUN/CREATININE RATIO 22; CALCIUM 9.9 MG/DL (8.5-10.1); CARBON DIOXIDE 18 MMOL/L (21-32); CHLORIDE 105 MMOL/L (98-107); CREATININE SERUM 0.89 MG/DL (0.60-1.30); GFR ESTIMATED > 60; GLUCOSE 103 MG/DL (70-105); LIPASE 12 U/L (8-78); POTASSIUM 3.7 MMOL/L (3.6-5.0); SODIUM 139 MMOL/L (135-145); TOTAL PROTEIN 7.1 GM/DL (6.4-8.2)
[2018-09-21] MEDS ORDERED: LORazepam INJ 2 MG/ML (ATIVAN) VIAL ONE (10:09)
[2018-09-21] MEDS ORDERED: HOLD METFORMIN - RECEIVED CONTRAST 20 ML VIAL IV SCH (10:15)
[2018-09-21] MEDS ORDERED: fentaNYL INJECTION 100 MCG/2 ML AMP IVP ONE (10:15)
[2018-09-21] MEDS ORDERED: IOHEXOL 350 MG/ML 150 ML (OMNIPAQUE 350) VIAL IV ONE (10:15)
[2018-09-21] MEDS ORDERED: NS 250 ML (IVPB) BAG IV ONE (10:15)
--- NOTE | 2018-09-21 11:22 | Diagnostic Imaging Report ---
PROCEDURE: CT angiography of the chest with contrast. TECHNIQUE: Multiple contiguous axial images were obtained through the chest after uneventful bolus administration of intravenous contrast. 2D reconstructed CTA MIP acquisitions were also performed. Auto Exposure Controls were utilized during the CT exam to meet ALARA standards for radiation dose reduction. INDICATION: Chest pain, shortness of breath. Comparison made with a radiograph from earlier in the same day. FINDINGS: There is adequate opacification of the pulmonary arterial system for diagnostic evaluation with no evidence of a filling defect within the pulmonary arteries to suggest embolism. The thoracic aorta demonstrates no evidence of dissection or aneurysm. There is no pericardial collection. There are no pathologically enlarged mediastinal, hilar or axillary lymph nodes. Lungs are hyperinflated with findings of mild centrilobular emphysema. There is a 5 mm nodule within the right upper lobe. There is no focal alveolar infiltrate or consolidation. There is no effusion. There is no pneumothorax. The thyroid demonstrates the left thyroid lobe enlargement with a 1.6 cm thyroid nodule. The visualized portion of the upper abdomen demonstrates a hypervascular lesion within the right hepatic dome measuring 11 mm. There also appears to be hepatic steatosis. There are gallstones within the gallbladder. There is no abnormal biliary dilatation. There is no adrenal mass. The kidneys appear nonobstructed. There is a small hiatal hernia. There is no acute or suspicious osseous abnormality evident. There are multilevel degenerative endplate changes present within the thoracic spine. The alignment is normal and vertebral body heights appear maintained. Impression: 1. No CT angiographic evidence of pulmonary embolism. 2. Thoracic aorta unremarkable. 3. Heart size normal. 4. Centrilobular emphysema with a 5 mm right upper lobe pulmonary nodule. Six-month followup could be considered. 5. Enlarged thyroid with left thyroid nodule. 6. Cholelithiasis without biliary dilatation. 7. Hypervascular lesion within the dome of the right hepatic lobe. 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 This could also be reassessed at the patient six-month followup. 8. No acute or suspicious osseous abnormality. Dictated by: Dictated on workstation # [id number]
--- OUTSIDE RECORDS SUMMARY | 2018-09-21 12:24 | XMS REPORT | Continuity of Care Document ---
Author Organization Unknown Address Unknown Allergies There is no data. Medications There is no data. Problems There is no data. Procedures Code Description Performed By Performed On [id number] CONSULT TO CARE PROGRESSION 08/04/2018 [id number] NOTIFY PHYSICIAN 08/04/2018 NUR6 ACTIVITY ORDER 08/04/2018 OQL705 BLADDER SCANNING ALGORITHM 08/04/2018 COD2 FULL CODE 08/04/2018 DIET24 DIET 08/04/2018 HTC312 NURSING COMMUNICATION 08/04/2018 ADT70 ADMIT TO SWING BED 08/04/2018 NYD975 CONSULT TO CARE PROGRESSION 08/04/2018 ICQ387 REASON FOR NO VTE PROPHYLAXIS - PHARMACOLOGICAL 08/04/2018 BUN486 REASON FOR NO VTE PROPHYLAXIS - MECHANICAL 08/04/2018 NWI654 NURSING COMMUNICATION 08/04/2018 AZU312 DAILY WEIGHTS 08/04/2018 OT1 OT EVAL AND TREAT 08/04/2018 PT4 PT EVAL AND TREAT 08/04/2018 SLP2 ARMATURE WINDER REPAIR EVAL AND TREAT 08/04/2018 DNS1 DIETARY NUTRITION SUPPLEMENTS 08/04/2018 JGO796 VITAL SIGNS 08/05/2018 DNS1 DIETARY NUTRITION SUPPLEMENTS 08/05/2018 [id number] BASIC METABOLIC PANEL 08/05/2018 LKD158 DIAGNOSIS QUERY 08/05/2018 DNS1 DIETARY NUTRITION SUPPLEMENTS [...] SUPPLEMENTS 08/11/2018 DNS1 DIETARY NUTRITION SUPPLEMENTS 08/11/2018 [id number] BASIC METABOLIC PANEL 08/11/2018 DNS1 DIETARY NUTRITION SUPPLEMENTS 08/12/2018 DNS1 DIETARY NUTRITION SUPPLEMENTS 08/12/2018 DNS1 DIETARY NUTRITION SUPPLEMENTS 08/12/2018 DNS1 DIETARY NUTRITION SUPPLEMENTS 08/13/2018 HAY072 NOTIFY PHYSICIAN 08/13/2018 BZH351 HEIGHT AND WEIGHT 08/13/2018 WVW315 VITAL SIGNS 08/13/2018 WCO383 APPLY WARMING BLANKET 08/13/2018 [id number] STONE ANALYSIS URINARY 08/13/2018 OBN5861 STONE ANALYSIS URINARY 08/13/2018 ADT8 DISCHARGE PATIENT 08/13/2018 BKP925 MEASURE BLOOD PRESSURE 08/13/2018 TVR916 VITAL SIGNS 08/13/2018 DBF048 NOTIFY PHYSICIAN 08/13/2018 NWK166 NURSING COMMUNICATION 08/13/2018 MCS746 NURSING OXYGEN ORDERS/INSTRUCTIONS 08/13/2018 GOJ841 CONTINUOUS PULSE OXIMETRY 08/13/2018 ZOF818 APPLY WARMING BLANKET 08/13/2018 NNY698 GLUCOSE POC 08/13/2018 DNS1 DIETARY NUTRITION SUPPLEMENTS 08/13/2018 [id number] CANDIDO RECOMMENDATION ORDER 08/13/2018 LGP829 NURSING COMMUNICATION 08/13/2018 OZB4375 URINALYSIS REFLEX 08/13/2018 OEE1440 CULTURE, URINE 08/14/2018 FLE1367 URINALYSIS REFLEX 08/14/2018 GNX9516 URINALYSIS MICROSCOPIC ONLY 08/14/2018 DNS1 DIETARY NUTRITION SUPPLEMENTS 08/14/2018 GQD0656 CBC AND DIFF (MANUAL DIFF IF NECESSARY) 08/14/2018 [id number] COMPREHENSIVE METABOLIC PANEL 08/14/2018 TTV3872 CBC AND DIFF (MANUAL DIFF IF NECESSARY) 08/14/2018 DGW6145 COMPREHENSIVE METABOLIC PANEL 08/14/2018 DNS1 DIETARY NUTRITION SUPPLEMENTS 08/14/2018 COD2 FULL CODE 08/14/2018 EMK7002 CBC AND DIFF (MANUAL DIFF IF NECESSARY) 08/14/2018 CHD9923 CULTURE, BLOOD 08/14/2018 FCC3176 CULTURE, BLOOD 08/14/2018 DNS1 DIETARY NUTRITION SUPPLEMENTS 08/14/2018 DNS1 DIETARY NUTRITION SUPPLEMENTS 08/15/2018 HQC6022 CBC AND DIFF (MANUAL DIFF IF NECESSARY) 08/15/2018 DNS1 DIETARY NUTRITION SUPPLEMENTS 08/15/2018 DNS1 DIETARY NUTRITION SUPPLEMENTS 08/15/2018 DNS1 DIETARY NUTRITION SUPPLEMENTS 08/16/2018 DNS1 DIETARY NUTRITION SUPPLEMENTS 08/16/2018 DNS1 DIETARY NUTRITION SUPPLEMENTS 08/16/2018 [id number] BASIC METABOLIC PANEL 08/17/2018 [id number] CBC AND DIFF (MANUAL DIFF IF NECESSARY) 08/17/2018 DNS1 DIETARY NUTRITION SUPPLEMENTS 08/17/2018 DNS1 DIETARY NUTRITION SUPPLEMENTS 08/17/2018 DNS1 DIETARY NUTRITION SUPPLEMENTS 08/17/2018 [id number] BASIC METABOLIC PANEL 08/18/2018 KOB2206 CBC AND DIFF (MANUAL DIFF IF NECESSARY) 08/18/2018 DNS1 DIETARY NUTRITION SUPPLEMENTS 08/18/2018 DNS1 DIETARY NUTRITION SUPPLEMENTS 08/18/2018 DNS1 DIETARY NUTRITION SUPPLEMENTS 08/18/2018 DNS1 DIETARY NUTRITION SUPPLEMENTS 08/19/2018 DNS1 DIETARY NUTRITION SUPPLEMENTS 08/19/2018 DIET24 DIET 08/19/2018 OED180 ACTIVITY TOLERATED 08/19/2018 LCD425 FOLLOW UP PRIMARY PHYSICIAN 08/19/2018 ZVQ838 NURSING COMMUNICATION 08/19/2018 YQP615 PATIENT MAY SHOWER 08/19/2018 HIZ543 DISCHARGE FOLLOW UP 08/19/2018 ADT8 DISCHARGE PATIENT [...] Status Pt. Type Provider Facility Loc./Unit Complaint [id number] 09/21/2018 08:00:00 ACT Outpatient Any [facility] [id number] 08/19/2018 14:56:08 08/19/2018 23:59:59 CLS Outpatient [id number] 08/04/2018 13:54:21 08/19/2018 12:53:00 DIS Inpatient SANCHEZ YUSUF MS Hypokalemia [id number] 08/13/2018 07:08:00 08/13/2018 12:25:00 DIS Outpatient CHARU MANNING MAIN OR LEFT KIDNEY STONE N20.0 [id number] 08/25/2018 10:08:18 Document Registration [id number] 08/20/2018 16:49:13 Document Registration [id number] 08/13/2018 08:39:16 Document Registration
[2018-09-21] MEDS ORDERED: fentaNYL INJECTION 100 MCG/2 ML AMP IVP PRN (13:45)
[2018-09-21] MEDS ORDERED: ONDANSETRON 4 MG/2 ML (SDV) Z0FRAN IVP PRN (13:45)
[2018-09-21] MEDS ORDERED: ACETAMINOPHEN 500 MG TAB (TYLENOL) PO PRN (13:45)
[2018-09-21] MEDS ORDERED: morphine INJ 4 MG/ML 1 ML (VIAL/SYRINGE) IVP PRN (14:00)
[2018-09-21] MEDS ORDERED: NITROGLYCERIN 0.4 MG SL TABS BTL 25'S SL ONE (14:00)
--- NOTE | 2018-09-21 16:30 | Consultation-Cardiology ---
HPI-Cardiology Cardiology Consultation: Date of Consultation 09/21/18 Time Seen by a Provider: 15:50 Date of Admission Attending Physician Dayana Arambula DO Admitting Physician Any Garcia MD Consulting Physician VASQUEZ PATTERSON MD, MA, FACP, FACC, FSCAI, CCDS HPI: Chief Complaint: CC: Chest discomfort HPI 78 yo woman with chest discomfort: onset this yesterday, multiple episodes since, lasting less than a min, R parasternal, sharp, moderate, radiating to R neck and R back, w/o aggravating factors, unrelieved with NTG or morphine in ER, relieved with anxiolytics in ER. Denies shortness of breath or palp or syncope or ankle swelling. Review of Systems-Cardiology Review of Systems Constitutional: No weight loss, No weight gain Eyes: No vision change Ears/Nose/Throat: No ear discharge, No nasal drainage, No recent hearing loss Respiratory: As described under HPI Cardiovascular: As described under HPI Gastrointestinal: No diarrhea, No nausea Genitourinary: No hematuria, No urine frequency changes Musculoskeletal: back pain (chronic) Skin: No rash, No ulcerations Psychiatric/Neurological: No seizure, No focal weakness, No syncope Hematologic: No bleeding abnormalities QAX-Mqprpi-Iqclbx Hx Patient Social History Alcohol Use: Denies Use Recreational Drug Use: No Smoking Status: Former Smoker Recent Foreign Travel: No Recent Infectious Disease Expo: No Past Medical History PMH As described under Assessment. Family Medical History Family Medical History: Does not report fam h/o early CAD or SCD Allergies and Home Medications Allergies Coded Allergies: No Known Drug Allergies (Unverified , 09/21/18) Patient Home Medication List Home Medication List Reviewed: Yes Physical Exam-Cardiology Physical Exam Vital Signs/I&O 09/21/18 09/21/18 09/21/18 09/21/18 08:25 08:51 13:12 13:45 Temp 98.1 Pulse 92 75 66 Resp 20 20 15 B/P (MAP) 137/101 (113) 100/56 (71) 110/65 (80) Pulse Ox 98 98 100 O2 Delivery Room Air Nasal Cannula Nasal Cannula O2 Flow Rate 2.00 2.00 09/21/18 09/21/18 09/21/18 09/21/18 14:00 14:34 15:00 16:00 Pulse 63 64 61 Resp 8 15 B/P (MAP) 98/47 (64) 93/62 (72) Pulse Ox 100 100 100 O2 Delivery Nasal Cannula Nasal Cannula Nasal Cannula O2 Flow Rate 2.00 2.00 2.00 Capillary Refill : Greater Than 3 Seconds Constitutional: AAO x 3, well-developed, other (thin-appearing, appears mildly confused at times) HEENT: EOMI; No xanthelasmas are seen Neck: carotid pulses are 2 + bilaterally, with good upstrokes Respiratory: No accessory muscle use; other (fair to good bilat air entry) Cardiovascular: regular rate-rhythm, S1 and S2, systolic murmur (soft LISBETH at card base) Gastrointestinal: No tender; soft; No guarding, No rebound; audible bowel sounds Extremities: No clubbing, No cyanosis, No significant edema Neurologic/Psychiatric: grossly intact, power is 5/5 both on sides Skin: No rash on exposed areas, No ulcerations on exposed areas Data Review Labs Laboratory Tests 09/21/18 08:46: Prothrombin Time 12.9, INR Comment 0.9, Activated Partial Thromboplast Time 34 09/21/18 09:08: White Blood Count 11.4H, Red Blood Count 5.03, Hemoglobin 13.5, Hematocrit 41, Mean Corpuscular Volume 81, Mean Corpuscular Hemoglobin 27, Mean Corpuscular Hemoglobin Concent 33, Red Cell Distribution Width 17.7H, Platelet Count 275, Mean Platelet Volume 9.7, Neutrophils (%) (Auto) 83H, Lymphocytes (%) (Auto) 9L, Monocytes (%) (Auto) 7, Eosinophils (%) (Auto) 0, Basophils (%) (Auto) 0, Neutrophils # (Auto) 9.4H, Lymphocytes # (Auto) 1.1, Monocytes # (Auto) 0.8, Eosinophils # (Auto) 0.1, Basophils # (Auto) 0.0, Sodium Level 139, Potassium Level 3.7, Chloride Level 105, Carbon Dioxide Level 18L, Anion Gap 16H, Blood Urea Nitrogen 20H, Creatinine 0.89, Estimat Glomerular Filtration Rate > 60, BUN/Creatinine Ratio 22, Glucose Level 103, Calcium Level 9.9, Corrected Calcium 9.8, Magnesium Level 2.0, Total Bilirubin 2.1H, Aspartate Amino Transf (AST/SGOT) 50H, Alanine Aminotransferase (ALT/SGPT) 14, Alkaline Phosphatase 123, Myoglobin 40.0, Troponin I < 0.028, B-Type Natriuretic Peptide 18.4, Total Protein 7.1, Albumin 4.1, Lipase 12 09/21/18 14:54: Troponin I < 0.028 Laboratory Tests 09/21/18 09:08 A/P-Cardiology Assessment/Admission Diagnosis Chest discomfort Anxiety, managed by Dr Arambula Mild hyperbilirubinemia, managed by Dr Arambula Discussion and Recomendations * Serial card enz * Serial ECG * Echo * If there is evidence of ACS, consider cath * If no evidence of ACS, consider MPI for coronary risk stratification Clinical Quality Measures DVT/VTE Risk/Contraindication: Risk Factor Score Per Nursin RFS Level Per Nursing on Admit: 4+=Very High VASQUEZ PATTERSON MD FACP FAC CCDS September 21, 2018 16:30
[2018-09-21] MEDS ORDERED: REGADENOSON 0.4 MG/5 ML SYR (LEXISCAN) IV ONE (16:45)
[2018-09-22] VITALS: BP 126/70
--- NOTE | 2018-09-22 03:22 | NUR ---
Pt awake, agitated, at side of bed, insisting that daughter be called, this RN attempted to reorient pt, pt becoming more agitated, daughter called, pt talked to daughter, states daughter will be out.
[2018-09-22 04:00] VITALS: BP 98/52
--- NOTE | 2018-09-22 07:24 | Pulmonary Consultation ---
History of Present Illness History of Present Illness Date of Consultation 09/22/18 07:19 Time Seen by Provider: 08:21 Date of Admission History of Present Illness 78yo poor historian/dementia presented to ED secondary to worsening R parasternal sharp radiating CP to right neck and back. Pain did not improve with NTG or Morphine. Pain did improved with anxiolytics. Denies SOB, palpitations or LE edema. CT of chest did show small 5mm RUL nodule. Pt has hx of tobacco use. Daughter is at bedside. Unable to obtain ROS secondary to Pt's MS. Allergies and Home Medications Allergies Coded Allergies: No Known Drug Allergies (Unverified , 09/21/18) Past Zwudzqj-Bmpqag-Ghfmyp Hx Patient Social History Alcohol Use: Denies Use Recreational Drug Use: No Smoking Status: Former Smoker Former Smoker, Quit: September 24, 1995 Recent Foreign Travel: No Contact w/Someone Who Travel: No Recent Infectious Disease Expo: No Recent Hopitalizations: No Seasonal Allergies Seasonal Allergies: No Past Medical History Surgeries: No Respiratory: No Cardiac: Yes High Cholesterol Neurological: Yes Multiple Sclerosis Genitourinary: Yes UTI-Chronic Gastrointestinal: No Musculoskeletal: Yes Osteoporosis Endocrine: No HEENT: No Cancer: No Psychosocial: No Integumentary: No Blood Disorders: No Review of Systems Time Seen by Provider: 08:24 Sepsis Event Evaluation Height, Weight, BMI Height: 5'7.00" Weight: 130lbs. 1.0oz. 58.783974fp; 20.7 BMI Method:Estimated Exam Exam Vital Signs Date Time Temp Pulse Resp B/P (MAP) Pulse Ox O2 Delivery O2 Flow Rate FiO2 09/22/18 04:00 Room Air 09/22/18 04:00 77 15 98/52 (67) 91 Room Air 09/22/18 01:00 67 09/22/18 00:00 100 Room Air 09/22/18 00:00 73 22 126/70 (88) 91 Room Air 09/21/18 23:08 97.6 Room Air 09/21/18 21:00 78 22 124/68 (86) 100 Nasal Cannula 2.00 09/21/18 21:00 100 Room Air 09/21/18 20:00 100 Nasal Cannula 2.00 09/21/18 20:00 64 12 104/70 (81) 100 Nasal Cannula 2.00 09/21/18 19:45 97.2 09/21/18 19:00 64 09/21/18 19:00 59 13 114/63 (80) 97 Nasal Cannula 2.00 09/21/18 18:00 66 9 115/87 (96) 100 Nasal Cannula 2.00 09/21/18 17:00 54 14 87/60 (69) 100 Nasal Cannula 2.00 09/21/18 16:28 100 Nasal Cannula 2.00 09/21/18 16:00 62 30 87/62 (70) 99 Nasal Cannula 2.00 09/21/18 16:00 100 Nasal Cannula 2.00 09/21/18 15:00 61 15 93/62 (72) 100 Nasal Cannula 2.00 09/21/18 14:34 64 09/21/18 14:00 63 8 98/47 (64) 100 Nasal Cannula 2.00 09/21/18 13:45 66 15 110/65 (80) 100 Nasal Cannula 2.00 09/21/18 13:12 75 20 100/56 (71) 98 Nasal Cannula 2.00 09/21/18 08:51 Room Air 09/21/18 08:25 98.1 92 20 137/101 (113) 98 I & O 09/22/18 07:00 Intake Total 1200 ml Output Total 25 ml Balance 1175 ml Height & Weight Height: 5'7.00" Weight: 130lbs. 1.0oz. 58.957780hu; 20.7 BMI Method:Estimated General Appearance: WD/WN, Anxious, Mild Distress HEENT: PERRL/EOMI, Pharynx Normal, Moist Mucous Membranes Neck: Full Range of Motion, Normal Inspection, Non Tender, Supple Respiratory: Chest Non Tender, Lungs Clear, Normal Breath Sounds, No Accessory Muscle Use, No Respiratory Distress Cardiovascular: Regular Rate, Rhythm, No Edema, Normal Peripheral Pulses Capillary Refill: Greater Than 3 Seconds Neurologic/Psychiatric: Alert, Oriented x3 Skin: Normal Color Results Lab Laboratory Tests 09/21/18 09:08 Assessment/Plan Assessment/Plan 5mm RUL Lung nodule -CT of chest shows 5mm lung nodule and radiology recommends 6mo f/u CT. Secondary to age and severe dementia pros/cons should be discussed with family prior to ordering. CP -Cardiology following Anxiety Increased AARON Delgado DO September 22, 2018 07:24
[2018-09-22 08:00] VITALS: BP 105/76
[2018-09-22 08:13] LABS: BASOPHILS % (AUTO) 0 % (0-10); EOSINOPHILS # (AUTO) 0.2 10^3/uL (0.0-0.3); EOSINOPHILS % (AUTO) 2 % (0-10); HEMATOCRIT 40 % (35-52); HEMOGLOBIN 13.1 G/DL (11.5-16.0); LYMPHOCYTES % (AUTO) 13 % (12-44); MEAN CORPUSCULAR HEMOGLOBIN 27 PG (25-34); MEAN CORPUSCULAR HGB CONC 33 G/DL (32-36); MEAN CORPUSCULAR VOLUME 84 FL (80-99); MEAN PLATELET VOLUME 10.2 FL (7.4-10.4); MONOCYTES # (AUTO) 0.6 X 10^3 (0.0-1.0); MONOCYTES % (AUTO) 7 % (0-12); NEUTROPHILS # (AUTO) 5.8 X 10^3 (1.8-7.8); NEUTROPHILS % (AUTO) 78 % (42-75); PLATELET COUNT 221 10^3/uL (130-400); RED CELL DISTRIBUTION WIDTH 17.6 % (10.0-14.5); WHITE BLOOD COUNT 7.5 10^3/uL (4.3-11.0)
--- NOTE | 2018-09-22 08:25 | History & Physicial ---
History of Present Illness History of Present Illness Date of Admission September 21, 2018 at 12:10 I consulted on this patient on 09/22/18 08:25 Attending Physician Dayana Arambula DO Admitting Physician Alexia Garcia MD Consult Allergies and Home Medications Allergies Coded Allergies: No Known Drug Allergies (Unverified , 09/21/18) Past Ktzjkyg-Bwrhfr-Zyratl Hx Patient Social History Alcohol Use: Denies Use Recreational Drug Use: No Smoking Status: Former Smoker Former Smoker, Quit: September 24, 1995 Recent Foreign Travel: No Contact w/other who traveled: No Recent Hopitalizations: No Recent Infectious Disease Expo: No Seasonal Allergies Seasonal Allergies: No Surgeries No Respiratory No Cardiovascular Yes High Cholesterol Neurological Yes Multiple Sclerosis Genitourinary Yes UTI-Chronic Gastrointestinal No Musculoskeletal Yes Osteoporosis Endocrine History of Endocrine Disorders: No HEENT History of HEENT Disorders: No Cancer No Psychosocial History of Psychiatric Problem: No Integumentary History of Skin or Integumenta: No Blood Transfusions History of Blood Disorders: No Physical Exam Vital Signs Vital Signs - First Documented 09/21/18 09/21/18 09/21/18 08:25 08:51 13:12 Temp 98.1 Pulse 92 Resp 20 B/P (MAP) 137/101 (113) Pulse Ox 98 O2 Delivery Room Air O2 Flow Rate 2.00 Capillary Refill : Greater Than 3 Seconds Height, Weight, BMI Height: 5'7.00" Weight: 130lbs. 1.0oz. 58.450759pg; 20.7 BMI Method:Estimated Assessment/Plan Assessment and Plan Impression: 1. No CT angiographic evidence of pulmonary embolism. 2. Thoracic aorta unremarkable. 3. Heart size normal. 4. Centrilobular emphysema with a 5 mm right upper lobe pulmonary nodule. Six-month followup could be considered. 5. Enlarged thyroid with left thyroid nodule. 6. Cholelithiasis without biliary dilatation. 7. Hypervascular lesion within the dome of the right hepatic lobe. 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 This could also be reassessed at the patient six-month followup. 8. No acute or suspicious osseous abnormality. Clinical Quality Measures DVT/VTE Risk/Contraindication: Risk Factor Score Per Nursin RFS Level Per Nursing on Admit: 4+=Very High ALEXIA GARCIA MD September 22, 2018 08:25
[2018-09-22 08:34] LABS: BUN/CREATININE RATIO 24; CALCIUM 9.2 MG/DL (8.5-10.1); CARBON DIOXIDE 17 MMOL/L (21-32); CHLORIDE 108 MMOL/L (98-107); CREATININE SERUM 0.78 MG/DL (0.60-1.30); GFR ESTIMATED > 60; GLUCOSE 76 MG/DL (70-105); MAGNESIUM 2.2 MG/DL (1.8-2.4); PHOSPHORUS 3.2 MG/DL (2.3-4.7); POTASSIUM 3.9 MMOL/L (3.6-5.0); SODIUM 138 MMOL/L (135-145)
[2018-09-22 08:42] LABS: BUN/CREATININE RATIO 24; CALCIUM 9.2 MG/DL (8.5-10.1); CARBON DIOXIDE 17 MMOL/L (21-32); CHLORIDE 108 MMOL/L (98-107); CREATININE SERUM 0.78 MG/DL (0.60-1.30); GFR ESTIMATED > 60; GLUCOSE 76 MG/DL (70-105); POTASSIUM 3.9 MMOL/L (3.6-5.0); SODIUM 138 MMOL/L (135-145)
[2018-09-22] MEDS ORDERED: ASPIRIN E.C. 81 MG (ECOTRIN) TAB PO SCH (09:00)
[2018-09-22 09:01] LABS: CHOLESTEROL 174 MG/DL (< 200); HDL CHOLESTEROL 56 MG/DL (40-60); TRIGLYCERIDES 85 MG/DL (<150); VLDL CHOLESTEROL 17 MG/DL (5-40)
--- NOTE | 2018-09-22 09:11 | Progress Note-Cardiology ---
Cardiology SOAP Progress Note Subjective: No cp today. Denies shortness of breath or palp or syncope Objective: I&O/Vital Signs 09/21/18 09/22/18 09/22/18 09/22/18 23:08 00:00 00:00 01:00 Temp 97.6 Pulse 73 67 Resp 22 B/P (MAP) 126/70 (88) Pulse Ox 91 100 O2 Delivery Room Air Room Air Room Air 09/22/18 09/22/18 09/22/18 09/22/18 04:00 04:00 07:00 08:00 Pulse 77 52 71 Resp 15 15 B/P (MAP) 98/52 (67) 105/76 (86) Pulse Ox 91 O2 Delivery Room Air Room Air Room Air 09/22/18 09/22/18 08:00 08:12 Pulse Ox 98 98 O2 Delivery Room Air Room Air 09/22/18 00:00 Intake Total 1200 ml Output Total 25 ml Balance 1175 ml Weight (Pounds): 130 Weight (Ounces): 1.0 Weight (Calculated Kilograms): 58.690538 Constitutional: AAO x 3, well-developed, other (thin-appearing, appears mildly confused at times) Respiratory: No accessory muscle use; other (fair to good bilat air entry) Cardiovascular: regular rate-rhythm, S1 and S2, systolic murmur (soft LISBETH at card base) Gastrointestional: No tender; soft; No guarding, No rebound; audible bowel sounds Extremities: No clubbing, No cyanosis, No significant edema Neurologic/Psychiatric: grossly intact, power is 5/5 both on sides Skin: No rash on exposed areas, No ulcerations on exposed areas Results/Procedures: Labs Laboratory Tests 09/21/18 09:08: White Blood Count 11.4H, Red Blood Count 5.03, Hemoglobin 13.5, Hematocrit 41, Mean Corpuscular Volume 81, Mean Corpuscular Hemoglobin 27, Mean Corpuscular Hemoglobin Concent 33, Red Cell Distribution Width 17.7H, Platelet Count 275, Mean Platelet Volume 9.7, Neutrophils (%) (Auto) 83H, Lymphocytes (%) (Auto) 9L, Monocytes (%) (Auto) 7, Eosinophils (%) (Auto) 0, Basophils (%) (Auto) 0, Neutrophils # (Auto) 9.4H, Lymphocytes # (Auto) 1.1, Monocytes # (Auto) 0.8, Eosinophils # (Auto) 0.1, Basophils # (Auto) 0.0, Sodium Level 139, Potassium Level 3.7, Chloride Level 105, Carbon Dioxide Level 18L, Anion Gap 16H, Blood Urea Nitrogen 20H, Creatinine 0.89, Estimat Glomerular Filtration Rate > 60, BUN/Creatinine Ratio 22, Glucose Level 103, Calcium Level 9.9, Corrected Calcium 9.8, Magnesium Level 2.0, Total Bilirubin 2.1H, Aspartate Amino Transf (AST/SGOT) 50H, Alanine Aminotransferase (ALT/SGPT) 14, Alkaline Phosphatase 123, Myoglobin 40.0, Troponin I < 0.028, B-Type Natriuretic Peptide 18.4, Total Protein 7.1, Albumin 4.1, Lipase 12 09/21/18 14:54: Troponin I < 0.028 09/21/18 21:01: Troponin I < 0.028 09/22/18 07:55: White Blood Count 7.5, Red Blood Count 4.81, Hemoglobin 13.1, Hematocrit 40, Mean Corpuscular Volume 84, Mean Corpuscular Hemoglobin 27, Mean Corpuscular Hemoglobin Concent 33, Red Cell Distribution Width 17.6H, Platelet Count 221, Mean Platelet Volume 10.2, Neutrophils (%) (Auto) 78H, Lymphocytes (%) (Auto) 13, Monocytes (%) (Auto) 7, Eosinophils (%) (Auto) 2, Basophils (%) (Auto) 0, Neutrophils # (Auto) 5.8, Lymphocytes # (Auto) 1.0, Monocytes # (Auto) 0.6, Eosinophils # (Auto) 0.2, Basophils # (Auto) 0.0, Sodium Level 138, Potassium Level 3.9, Chloride Level 108H, Carbon Dioxide Level 17L, Anion Gap 13, Blood Urea Nitrogen 19H, Creatinine 0.78, Estimat Glomerular Filtration Rate > 60, BUN/Creatinine Ratio 24, Glucose Level 76, Calcium Level 9.2, Magnesium Level 2.2, B-Type Natriuretic Peptide 44.2, Phosphorus Level 3.2, Triglycerides Level 85, Cholesterol Level 174, LDL Cholesterol Direct 98, VLDL Cholesterol 17, HDL Cholesterol 56 A/P: Assessment: R-sided chest discomfort, w/o evidence of ac RI Anxiety, managed by Dr Arambula Mild hyperbilirubinemia and cholelithiasis, managed by Dr Garcia Thyroid nodule, managed by Dr Garcia Plan: * MPI for coronary risk stratification, echo for eval for structural heart dz * I discussed her case with VASQUEZ Wu MD FACP FACC CCDS September 22, 2018 09:11
[2018-09-22] MEDS ORDERED: ATOR40TA70 PO (11:08)
[2018-09-22] MEDS ORDERED: OXYB5TAB9 PO (11:08)
[2018-09-22] MEDS ORDERED: ACET325T38 PO (11:15)
[2018-09-22] MEDS ORDERED: DOCU-143 PO (11:15)
[2018-09-22] MEDS ORDERED: CHOL10007 PO (11:15)
--- NOTE | 2018-09-22 11:15 | NUR ---
UPDATED MED REC WITH MAR FROM [facility] IN [place].
[2018-09-22] MEDS ORDERED: CATHETER FLUSH 10 ML SYR IV PRN (12:00)
--- NOTE | 2018-09-22 12:30 | NUR ---
PT brought back from Nuclear Medicine, with tech stating that pt refused to finish her stress test. Dr. Garcia and dr. Rondon notified.
--- NOTE | 2018-09-22 13:45 | NUR ---
Pt refused to let Dr. Blackburn assess her at this time. Dr. Garcia called and pt to be discharged and follow up with Dr. Rondon and Dr. Blackburn.
--- NOTE | 2018-09-22 22:13 | STRESS TEST ---
DATE OF SERVICE: 09/22/2018 RESTING TECHNETIUM-99M TETROFOSMIN SPECT CT IMAGING CLINICAL DIAGNOSIS: Chest pain. ORDERING PHYSICIAN: Dr. Rondon. PRIMARY PHYSICIAN: Dr. Garcia. This study was intended to be resting and post regadenoson myocardial perfusion imaging. The patient only had resting images performed and refused stress images. Resting images were obtained after injection of 10.66 mCi of technetium-99m Tetrofosmin. Resting images do not indicate any distinct perfusion defects consistent with significant myocardial infarction. There does appear to be some degree of apical thinning. CONCLUSIONS: This study consisted only of resting images because the patient refused stress images. The study does not indicate significant myocardial infarction. Job ID: [id number] DocumentID: [id number] Dictated Date: 09/22/2018 17:45:56 Forming Press Operator Date: 09/22/2018 22:12:17 Dictated By: VASQUEZ RONDON MD, MA, FACP, FACC,
--- NOTE | 2018-09-23 11:55 | Consultation (Surgery) ---
History of Present Illness History of Present Illness Patient Consulted On(donis/time) 09/22/18 11:49 Date Seen by Provider: September 22, 2018 Time Seen by Provider: 11:50 History of Present Illness Consult requested by Dr. Garcia for evaluation/management of Gallstones 78 y/o F admitted for chest pain r/o acs was found to have cholelithiasis on imaging. Patient is very difficult to interview and examine as she wants to go home and doesn't want anything else done. Limited history was able to determine that she does not have any abdominal pain at this time. She seems to have some recent upper abdominal pain and may radiate to back. She is not wanting to have cardiac stress test finished and refuses to talk to me further. No N/V/D, or SOB. Daughter at bedside. Who states she has been having issues but maybe better to discuss outpatient. Allergies and Home Medications Allergies Coded Allergies: No Known Drug Allergies (Unverified , 09/21/18) Home Medications Acetaminophen 325 Mg Tablet, 325-650 MG PO Q4H PRN for PAIN-MILD, (Reported) Atorvastatin Calcium 40 Mg Tablet, 40 MG PO HS, (Reported) Cholecalciferol (Vitamin D3) 1,000 Unit Capsule, 2,000 UNIT PO DAILY, (Reported) Docusate Sodium 100 Mg Capsule, 100 MG PO DAILY PRN for CONSTIPATION-1ST LINE, (Reported) Ibandronate Sodium 150 Mg Tablet, 150 MG PO MONTHLY ON THE , (Reported) Oxybutynin Chloride 5 Mg Tablet, 5 MG PO TID, (Reported) Trimethoprim 100 Mg Tablet, 100 MG PO DAILY, (Reported) Patient Home Medication List Home Medication List Reviewed: Yes Past Qvqhvan-Dsaleb-Umrqcy Hx Patient Social History Alcohol Use: Denies Use Recreational Drug Use: No Smoking Status: Former Smoker Former Smoker, Quit: September 24, 1995 Recent Foreign Travel: No Contact w/Someone Who Travel: No Recent Infectious Disease Expo: No Recent Hopitalizations: No Seasonal Allergies Seasonal Allergies: No Surgeries History of Surgeries: No Respiratory History of Respiratory Disorde: No Cardiovascular History of Cardiac Disorders: Yes Cardiac Disorders: High Cholesterol Neurological History of Neurological Disord: Yes Neurological Disorders: Multiple Sclerosis Genitourinary History of Genitourinary Disor: Yes Genitourinary Disorders: UTI-Chronic Gastrointestinal History of Gastrointestinal Di: No Musculoskeletal History of Musculoskeletal Dis: Yes Musculoskeletal Disorders: Osteoporosis Endocrine History of Endocrine Disorders: No HEENT History of HEENT Disorders: No Cancer History of Cancer: No Psychosocial History of Psychiatric Problem: No Integumentary History of Skin or Integumenta: No Blood Transfusions History of Blood Disorders: No Reviewed Nursing Assessment Reviewed/Agree w Nursing PMH: Yes Family Medical History Significant Family History: No Pertinent Family Hx Review of Systems-General Constitutional: no symptoms reported EENTM: no symptoms reported Respiratory: no symptoms reported Cardiovascular: no symptoms reported Gastrointestinal: no symptoms reported Genitourinary: no symptoms reported Musculoskeletal: no symptoms reported Skin: no symptoms reported Psychiatric/Neurological: No Symptoms Reported Physical Exam-General Problems Physical Exam Vital Signs Vital Signs - First Documented 09/21/18 09/21/18 09/21/18 08:25 08:51 13:12 Temp 98.1 Pulse 92 Resp 20 B/P (MAP) 137/101 (113) Pulse Ox 98 O2 Delivery Room Air O2 Flow Rate 2.00 Capillary Refill : Greater Than 3 Seconds General Appearance: no apparent distress HEENT: PERRL/EOMI Skin: normal color (limited exam due to patient refusing further exam.) Assessment/Plan Assessment/Plan Assessment/Plan Cholelithiasis Patient does not want anything done at this time, refusing to have physical exam at this time Patient to follow up in my clinic in 1 week Will discuss possibility of cholecystectomy if cholelithiasis is symptomatic Clinical Quality Measures DVT/VTE Risk/Contraindication: Risk Factor Score Per Nursin RFS Level Per Nursing on Admit: 4+=Very High MARIA C MARAVILLA DO September 23, 2018 11:55
== END 2018-09-22 09:25 | disposition home or self-care (01) ==
LOC: ER 08:18 → ICU 12:10 → UNDOADMOB 12:10 → ICU 13:20 → UNDODISOB 09-22 14:11
PROVIDERS: ADMIT Internal Medicine; ATTEND Internal Medicine
DX: K80.20 Calculus of gallbladder without cholecystitis without obstruction (principal); E80.6 Other disorders of bilirubin metabolism; E78.00 Pure hypercholesterolemia, unspecified; G35 Multiple sclerosis; F41.9 Anxiety disorder, unspecified; R91.1 Solitary pulmonary nodule; M81.0 Age-related osteoporosis without current pathological fracture; Z79.899 Other long term (current) drug therapy; Z87.891 Personal history of nicotine dependence
CPT/HCPCS: 36415; 71045; 71275; 78451; 80048; 80053; 80061; 82247; 83690; 83735; 83874; 83880; 84100; 84484; 85025; 85027; 85610; 85730; 93005; 93017; 93041; 93306; 96361; 96374; 96375; 96376

== ENCOUNTER → 2018-10-07 | Outpatient (CLI) | payer MEDICARE, OTHER ==
[~2018-10-07] MED LIST: ACET325T38 PO; AMOX875T2; ATOR40TA70 PO; CHOL10007 PO; DOCU-143 PO; IBAN150T8 PO; NITR100C10; OXYB5TAB9 PO; REGADENOSON 0.4 MG/5 ML SYR (LEXISCAN) IV ONE; TRIM100T PO
[2018-10-07] MEDS: CATHETER FLUSH 10 ML SYR IV PRN ×2 (12:28→13:19)
[2018-10-07 13:16] VITALS: BP 125/77
--- NOTE | 2018-10-08 13:16 | STRESS TEST ---
DATE OF SERVICE: 10/07/2018 RESTING AND POST REGADENOSON TECHNETIUM-99M TETROFOSMIN SPECT CT IMAGING ORDERING PHYSICIAN: VASQUEZ PATTERSON MD, CARYL, FACP, FACC. PRIMARY CARE PHYSICIAN: Any Garcia MD. CLINICAL DIAGNOSIS: Chest discomfort. Baseline images were carried out after injection of 10.6 mCi of technetium-99m Tetrofosmin. This was followed by 0.4 mg regadenoson and 31.3 mCi of technetium-99m Tetrofosmin for stress imaging. The electrocardiogram showed sinus rhythm at baseline. There was incomplete right bundle branch block. The electrocardiogram did not change significantly with the regadenoson infusion. The patient tolerated the procedure well. Review of images at rest and following stress does not indicate any significant perfusion defects consistent with myocardial ischemia or infarction. Gated images show normal global left ventricular systolic function with normal regional wall motion. Left ventricular ejection fraction is calculated to be 77%. Left ventricular end-diastolic volume is 34 mL. TID is absent (1.06). CONCLUSIONS: 1. No evidence of any significant myocardial ischemia or infarction. 2. Normal regional wall motion. 3. Normal global left ventricular systolic function with a calculated ejection fraction of 77%. Job ID: [id number] DocumentID: [id number] Dictated Date: 10/08/2018 12:18:25 Borematic Operator Date: 10/08/2018 13:15:37 Dictated By: VASQUEZ PATTERSON MD, CARYL, FACP, FACC,
== END ==
LOC: CARD 12:08
PROVIDERS: ATTEND Internal Medicine Cardiovascular Disease
DX: R07.9 Chest pain, unspecified (principal); E78.5 Hyperlipidemia, unspecified
CPT/HCPCS: 78452; 93017

== ENCOUNTER 2018-10-13 08:48 | Outpatient (CLI) | payer MEDICARE, OTHER ==
[~2018-10-13] VITALS: Ht 170.2 cm; Wt 58.7 kg
[~2018-10-13 08:48] MED LIST changes: -REGADENOSON 0.4 MG/5 ML SYR (LEXISCAN) IV ONE
[2018-10-13 09:07] VITALS: BP 125/65
== END 2018-10-13 09:25 | disposition home or self-care (01) ==
LOC: PREOP 08:48
PROVIDERS: ATTEND Surgery
DX: Z01.818 Encounter for other preprocedural examination (principal)
CPT/HCPCS: 87081

== ENCOUNTER 2018-10-16 08:50 | Day surgery (SDC) | payer MEDICARE, OTHER ==
[~2018-10-16] VITALS: Ht 170.2 cm; Wt 58.7 kg
[2018-10-16] VITALS (12 sets, daily range): BP systolic 92–131; BP diastolic 50–94
--- OUTSIDE RECORDS SUMMARY | 2018-10-16 09:03 | XMS REPORT | Continuity of Care Document ---
Author Organization Unknown Address Unknown Allergies Active Description Code Type Severity Reaction Onset Reported/Identified Relationship to Patient Clinical Status Yes No Known Drug Allergies [id number] Drug Allergy Unknown N/A 10/13/2018 Medications There is no data. Problems Date Dx Coded Attending Type Code Diagnosis Diagnosed By 09/22/2018 EDGARD GASPAR DO, Ot E78.00 PURE HYPERCHOLESTEROLEMIA, UNSPECIFIED 09/22/2018 EDGARD GASPAR DO Ot E80.6 OTHER DISORDERS OF BILIRUBIN METABOLISM 09/22/2018 EDGARD GASPAR DO Ot F41.9 ANXIETY DISORDER, UNSPECIFIED 09/22/2018 EDGARD GASPAR DO Ot G35 MULTIPLE SCLEROSIS 09/22/2018 EDGARD GASPAR DO Ot K80.20 CALCULUS OF GALLBLADDER W/O CHOLECYSTITI 09/22/2018 EDGARD GASPAR DO Ot M81.0 AGE-RELATED OSTEOPOROSIS W/O CURRENT PAT 09/22/2018 EDGARD GASPAR DO Ot R91.1 SOLITARY PULMONARY NODULE 09/22/2018 EDGARD GASPAR DO Ot Z79.899 OTHER MCC (CURRENT) DRUG THERAPY 09/22/2018 EDGARD GASPAR DO Ot Z87.891 PERSONAL HISTORY OF NICOTINE DEPENDENCE 10/13/2018 LEONARDO CARDONA FACC, VASQUEZ GOLDSTEINP CCDS Ot E78.5 HYPERLIPIDEMIA, UNSPECIFIED 10/13/2018 LEONARDO CARDONA FACC, VASQUEZ GOLDSTEINP CCDS Ot R07.9 CHEST PAIN, UNSPECIFIED Procedures Code Description Performed By Performed On LPB030 CONSULT TO CARE PROGRESSION 08/04/2018 SQB083 NOTIFY PHYSICIAN 08/04/2018 NUR6 ACTIVITY ORDER 08/04/2018 VKQ329 BLADDER SCANNING ALGORITHM 08/04/2018 COD2 FULL CODE 08/04/2018 DIET24 DIET 08/04/2018 MBJ611 NURSING COMMUNICATION 08/04/2018 ADT70 ADMIT TO SWING BED 08/04/2018 NZO810 CONSULT TO CARE PROGRESSION 08/04/2018 FAV826 REASON FOR NO VTE PROPHYLAXIS - PHARMACOLOGICAL 08/04/2018 HSM698 REASON FOR NO VTE PROPHYLAXIS - MECHANICAL 08/04/2018 HTE956 NURSING COMMUNICATION 08/04/2018 BIH711 DAILY WEIGHTS 08/04/2018 OT1 OT EVAL AND TREAT 08/04/2018 PT4 PT EVAL AND TREAT 08/04/2018 SLP2 OVEN OPERATOR AUTOMATIC EVAL AND TREAT 08/04/2018 DNS1 DIETARY NUTRITION SUPPLEMENTS 08/04/2018 PYA645 VITAL SIGNS 08/05/2018 DNS1 DIETARY NUTRITION SUPPLEMENTS 08/05/2018 [id number] BASIC METABOLIC PANEL 08/05/2018 IHS626 DIAGNOSIS QUERY 08/05/2018 DNS1 DIETARY NUTRITION SUPPLEMENTS [...] SUPPLEMENTS 08/11/2018 DNS1 DIETARY NUTRITION SUPPLEMENTS 08/11/2018 [id number] BASIC METABOLIC PANEL 08/11/2018 DNS1 DIETARY NUTRITION SUPPLEMENTS 08/12/2018 DNS1 DIETARY NUTRITION SUPPLEMENTS 08/12/2018 DNS1 DIETARY NUTRITION SUPPLEMENTS 08/12/2018 DNS1 DIETARY NUTRITION SUPPLEMENTS 08/13/2018 MRA895 NOTIFY PHYSICIAN 08/13/2018 AGH693 HEIGHT AND WEIGHT 08/13/2018 EZN915 VITAL SIGNS 08/13/2018 PPD626 APPLY WARMING BLANKET 08/13/2018 FQL0625 STONE ANALYSIS URINARY 08/13/2018 AST9624 STONE ANALYSIS URINARY 08/13/2018 ADT8 DISCHARGE PATIENT 08/13/2018 IRL415 MEASURE BLOOD PRESSURE 08/13/2018 UXG011 VITAL SIGNS 08/13/2018 VAI101 NOTIFY PHYSICIAN 08/13/2018 IPL068 NURSING COMMUNICATION 08/13/2018 GPR697 NURSING OXYGEN ORDERS/INSTRUCTIONS 08/13/2018 ONB841 CONTINUOUS PULSE OXIMETRY 08/13/2018 IWX860 APPLY WARMING BLANKET 08/13/2018 XCP022 GLUCOSE POC 08/13/2018 DNS1 DIETARY NUTRITION SUPPLEMENTS 08/13/2018 [id number] CANDIDO RECOMMENDATION ORDER 08/13/2018 EEA706 NURSING COMMUNICATION 08/13/2018 RJA8464 URINALYSIS REFLEX 08/13/2018 XJI2321 CULTURE, URINE 08/14/2018 CHY4831 URINALYSIS REFLEX 08/14/2018 REA0163 URINALYSIS MICROSCOPIC ONLY 08/14/2018 DNS1 DIETARY NUTRITION SUPPLEMENTS 08/14/2018 ASP0103 CBC AND DIFF (MANUAL DIFF IF NECESSARY) 08/14/2018 GPF7623 COMPREHENSIVE METABOLIC PANEL 08/14/2018 WZV2808 CBC AND DIFF (MANUAL DIFF IF NECESSARY) 08/14/2018 EEV6969 COMPREHENSIVE METABOLIC PANEL 08/14/2018 DNS1 DIETARY NUTRITION SUPPLEMENTS 08/14/2018 COD2 FULL CODE 08/14/2018 YTN9730 CBC AND DIFF (MANUAL DIFF IF NECESSARY) 08/14/2018 PLO0146 CULTURE, BLOOD 08/14/2018 OVN0870 CULTURE, BLOOD 08/14/2018 DNS1 DIETARY NUTRITION SUPPLEMENTS 08/14/2018 DNS1 DIETARY NUTRITION SUPPLEMENTS 08/15/2018 QNI4111 CBC AND DIFF (MANUAL DIFF IF NECESSARY) 08/15/2018 DNS1 DIETARY NUTRITION SUPPLEMENTS 08/15/2018 DNS1 DIETARY NUTRITION SUPPLEMENTS 08/15/2018 DNS1 DIETARY NUTRITION SUPPLEMENTS 08/16/2018 DNS1 DIETARY NUTRITION SUPPLEMENTS 08/16/2018 DNS1 DIETARY NUTRITION SUPPLEMENTS 08/16/2018 MPH0745 BASIC METABOLIC PANEL 08/17/2018 HIK0295 CBC AND DIFF (MANUAL DIFF IF NECESSARY) 08/17/2018 DNS1 DIETARY NUTRITION SUPPLEMENTS 08/17/2018 DNS1 DIETARY NUTRITION SUPPLEMENTS 08/17/2018 DNS1 DIETARY NUTRITION SUPPLEMENTS 08/17/2018 CAR4267 BASIC METABOLIC PANEL 08/18/2018 IIY4417 CBC AND DIFF (MANUAL DIFF IF NECESSARY) 08/18/2018 DNS1 DIETARY NUTRITION SUPPLEMENTS 08/18/2018 DNS1 DIETARY NUTRITION SUPPLEMENTS 08/18/2018 DNS1 DIETARY NUTRITION SUPPLEMENTS 08/18/2018 DNS1 DIETARY NUTRITION SUPPLEMENTS 08/19/2018 DNS1 DIETARY NUTRITION SUPPLEMENTS 08/19/2018 DIET24 DIET 08/19/2018 DVY497 ACTIVITY TOLERATED 08/19/2018 EUB184 FOLLOW UP PRIMARY PHYSICIAN 08/19/2018 OMV165 NURSING COMMUNICATION 08/19/2018 MHO325 PATIENT MAY SHOWER 08/19/2018 NEU447 DISCHARGE FOLLOW UP 08/19/2018 ADT8 DISCHARGE PATIENT [...] 83 60-200 GFR FEMALE NON-AA 69 60-200 PT panel in platelet poor plasma by coagulation assay - 09/21/18 08:46 Prothrombin time (PT) in platelet poor plasma by coagulation assay 12.9 s 12.2-14.7 INR in platelet poor plasma or blood by coagulation assay 0.9 0.8-1.4 Activated partial thromboplastin time (aPTT) in platelet poor plasma bycoagulation assay - 09/21/18 08:46 Activated partial thromboplastin time (aPTT) in platelet poor plasma bycoagulation assay 34 s 24-35 Complete blood count (CBC) with automated white blood cell (WBC) differential - 09/21/18 09:08 Blood leukocytes automated count (number/volume) 11.4 10*3/uL 4.3-11.0 Blood erythrocytes automated count (number/volume) 5.03 10*6/uL 4.35-5.85 Venous blood hemoglobin measurement (mass/volume) 13.5 g/dL 11.5-16.0 Blood hematocrit (volume fraction) 41 % 35-52 Automated erythrocyte mean corpuscular volume 81 [foz_us] 80-99 Automated erythrocyte mean corpuscular hemoglobin (mass per erythrocyte) 27 pg 25-34 Automated erythrocyte mean corpuscular hemoglobin concentration measurement (mass/volume) 33 g/dL 32-36 Automated erythrocyte distribution width ratio 17.7 % 10.0- 14.5 Automated blood platelet count (count/volume) 275 10*3/uL 130-400 Automated blood platelet mean volume measurement 9.7 [foz_us] 7.4-10.4 Automated blood neutrophils/100 leukocytes 83 % 42-75 Automated blood lymphocytes/100 leukocytes 9 % 12-44 Blood monocytes/100 leukocytes 7 % 0-12 Automated blood eosinophils/100 leukocytes 0 % 0-10 Automated blood basophils/100 leukocytes 0 % 0-10 Blood neutrophils automated count (number/volume) 9.4 10*3 1.8-7.8 Blood lymphocytes automated count (number/volume) 1.1 10*3 1.0-4.0 Blood monocytes automated count (number/volume) 0.8 10*3 0.0- 1.0 Automated eosinophil count 0.1 10*3/uL 0.0-0.3 Automated blood basophil count (count/volume) 0.0 10*3/uL 0.0-0.1 Comprehensive metabolic panel - 09/21/18 09:08 Serum or plasma sodium measurement (moles/volume) 139 mmol/L 135-145 Serum or plasma potassium measurement (moles/volume) 3.7 mmol/L 3.6-5.0 Serum or plasma chloride measurement (moles/volume) 105 mmol/L 98-107 Carbon dioxide 18 mmol/L 21-32 Serum or plasma anion gap determination (moles/volume) 16 mmol/L 5-14 Serum or plasma urea nitrogen measurement (mass/volume) 20 mg/dL 7-18 Serum or plasma creatinine measurement (mass/volume) 0.89 mg/dL 0.60-1.30 Serum or plasma urea nitrogen/creatinine mass ratio 22 NRG Serum or plasma creatinine measurement with calculation of estimated glomerular filtration rate > NRG Serum or plasma glucose measurement (mass/volume) 103 mg/dL 70-105 Serum or plasma calcium measurement (mass/volume) 9.9 mg/dL 8.5-10.1 Serum or plasma total bilirubin measurement (mass/volume) 2.1 mg/dL 0.1-1.0 Serum or plasma alkaline phosphatase measurement (enzymatic activity/volume) 123 U/L 40-136 Serum or plasma aspartate aminotransferase measurement (enzymatic activity/volume) 50 U/L 5-34 Serum or plasma alanine aminotransferase measurement (enzymatic activity/volume) 14 U/L 0-55 Serum or plasma protein measurement (mass/volume) 7.1 g/dL 6.4-8.2 Serum or plasma albumin measurement (mass/volume) 4.1 g/dL 3.2-4.5 CALCIUM CORRECTED 9.8 mg/dL 8.5-10.1 Magnesium - 09/21/18 09:08 Magnesium 2.0 mg/dL 1.8-2.4 Serum or plasma troponin i.cardiac measurement (mass/volume) - 09/21/18 09:08 Serum or plasma troponin i.cardiac measurement (mass/volume) < ng/mL <0.028 Myoglobin, serum - 09/21/18 09:08 Myoglobin, serum 40.0 ng/mL 10.0-92.0 Lipase - 09/21/18 09:08 Lipase 12 U/L 8-78 Serum or plasma lithium measurement (moles/volume) - 09/21/18 09:08 BNP level 18.4 pg/mL <100.0 Serum or plasma troponin i.cardiac measurement (mass/volume) - 09/21/18 14:54 Serum or plasma troponin i.cardiac measurement (mass/volume) < ng/mL <0.028 Serum or plasma troponin i.cardiac measurement (mass/volume) - 09/21/18 21:01 Serum or plasma troponin i.cardiac measurement (mass/volume) < ng/mL <0.028 Complete blood count (CBC) with automated white blood cell (WBC) differential - 09/22/18 07:55 Blood leukocytes automated count (number/volume) 7.5 10*3/uL 4.3-11.0 Blood erythrocytes automated count (number/volume) 4.81 10*6/uL 4.35-5.85 Venous blood hemoglobin measurement (mass/volume) 13.1 g/dL 11.5-16.0 Blood hematocrit (volume fraction) 40 % 35-52 Automated erythrocyte mean corpuscular volume 84 [foz_us] 80-99 Automated erythrocyte mean corpuscular hemoglobin (mass per erythrocyte) 27 pg 25-34 Automated erythrocyte mean corpuscular hemoglobin concentration measurement (mass/volume) 33 g/dL 32-36 Automated erythrocyte distribution width ratio 17.6 % 10.0- 14.5 Automated blood platelet count (count/volume) 221 10*3/uL 130-400 Automated blood platelet mean volume measurement 10.2 [foz_us] 7.4-10.4 Automated blood neutrophils/100 leukocytes 78 % 42-75 Automated blood lymphocytes/100 leukocytes 13 % 12-44 Blood monocytes/100 leukocytes 7 % 0-12 Automated blood eosinophils/100 leukocytes 2 % 0-10 Automated blood basophils/100 leukocytes 0 % 0-10 Blood neutrophils automated count (number/volume) 5.8 10*3 1.8-7.8 Blood lymphocytes automated count (number/volume) 1.0 10*3 1.0-4.0 Blood monocytes automated count (number/volume) 0.6 10*3 0.0- 1.0 Automated eosinophil count 0.2 10*3/uL 0.0-0.3 Automated blood basophil count (count/volume) 0.0 10*3/uL 0.0-0.1 Whole blood basic metabolic panel - 09/22/18 07:55 Serum or plasma sodium measurement (moles/volume) 138 mmol/L 135-145 Serum or plasma potassium measurement (moles/volume) 3.9 mmol/L 3.6-5.0 Serum or plasma chloride measurement (moles/volume) 108 mmol/L 98-107 Carbon dioxide 17 mmol/L 21-32 Serum or plasma anion gap determination (moles/volume) 13 mmol/L 5-14 Serum or plasma urea nitrogen measurement (mass/volume) 19 mg/dL 7-18 Serum or plasma creatinine measurement (mass/volume) 0.78 mg/dL 0.60-1.30 Serum or plasma urea nitrogen/creatinine mass ratio 24 NRG Serum or plasma creatinine measurement with calculation of estimated glomerular filtration rate > NRG Serum or plasma glucose measurement (mass/volume) 76 mg/dL 70-105 Serum or plasma calcium measurement (mass/volume) 9.2 mg/dL 8.5-10.1 Serum or plasma phosphate measurement (mass/volume) - 09/22/18 07:55 Serum or plasma phosphate measurement (mass/volume) 3.2 mg/dL 2.3-4.7 Magnesium - 09/22/18 07:55 Magnesium 2.2 mg/dL 1.8-2.4 Whole blood basic metabolic panel - 09/22/18 07:55 Serum or plasma sodium measurement (moles/volume) 138 mmol/L 135-145 Serum or plasma potassium measurement (moles/volume) 3.9 mmol/L 3.6-5.0 Serum or plasma chloride measurement (moles/volume) 108 mmol/L 98-107 Carbon dioxide 17 mmol/L 21-32 Serum or plasma anion gap determination (moles/volume) 13 mmol/L 5-14 Serum or plasma urea nitrogen measurement (mass/volume) 19 mg/dL 7-18 Serum or plasma creatinine measurement (mass/volume) 0.78 mg/dL 0.60-1.30 Serum or plasma urea nitrogen/creatinine mass ratio 24 NRG Serum or plasma creatinine measurement with calculation of estimated glomerular filtration rate > NRG Serum or plasma glucose measurement (mass/volume) 76 mg/dL 70-105 Serum or plasma calcium measurement (mass/volume) 9.2 mg/dL 8.5-10.1 Serum or plasma lithium measurement (moles/volume) - 09/22/18 07:55 BNP level 44.2 pg/mL <100.0 Lipid 1996 panel - 09/22/18 07:55 Serum or plasma triglyceride measurement (mass/volume) 85 mg/dL <150 Serum or plasma cholesterol measurement (mass/volume) 174 mg/dL < 200 Serum or plasma cholesterol in HDL measurement (mass/volume) 56 mg/dL 40-60 Cholesterol in LDL [mass/volume] in serum or plasma by direct assay 98 mg/dL 1-129 Serum or plasma cholesterol in VLDL measurement (mass/volume) 17 mg/dL 5-40 Serum or plasma total bilirubin measurement (mass/volume) - 09/22/18 07:55 Serum or plasma total bilirubin measurement (mass/volume) 1.1 mg/dL 0.1-1.0 Methicillin resistant Staphylococcus aureus (MRSA) screening culture - 10/13/18 09:25 Methicillin resistant Staphylococcus aureus (MRSA) screening culture NEG NRG Encounters ACCT No. Visit Date/Time Discharge Status Pt. Type Provider Facility Loc./Unit Complaint [id number] 09/21/2018 08:00:00 09/21/2018 23:59:59 CLS Outpatient Any Garcia [facility] [id number] 08/19/2018 14:56:08 08/19/2018 23:59:59 CLS Outpatient [id number] 10/13/2018 08:48:00 10/13/2018 09:25:00 DIS Outpatient MARIA C MARAVILLA DO [facility] PREOP SYMPTOMATIC CHOLELITHIASIS [id number] 10/07/2018 12:08:00 10/07/2018 23:59:59 CLS Outpatient LEONARDO CARDONA FACC, VASQUEZ HUNTER CCDS [facility] CARD CHEST DISCOMFORT [id number] 09/21/2018 13:20:00 09/22/2018 09:25:00 DIS Inpatient EDGARD GASPAR DO [facility] ICU CP, R/O ACS [id number] 10/16/2018 10:50:00 PEN Preadmit MARIA C MARAVILLA DO [facility] SYMPTOMATIC CHOLELITHIASIS [id number] 08/04/2018 13:54:21 08/19/2018 12:53:00 DIS Inpatient SANCHEZ YUSUF AYANA MS Hypokalemia [id number] 08/13/2018 07:08:00 08/13/2018 12:25:00 DIS Outpatient CHARU MANNING [facility] MAIN OR LEFT KIDNEY STONE N20.0 [id number] 08/25/2018 10:08:18 Document Registration [id number] 08/20/2018 16:49:13 Document Registration [id number] 08/13/2018 08:39:16 Document Registration
[2018-10-16] MEDS ORDERED: ceFAZolin INJECTION 1,000 MG in WATER (STERILE) FOR INJECTION 10 ML IV ONE (09:15)
[2018-10-16] MEDS: LACTATED RINGERS 1,000 ML IV PRN ×2 (09:17→11:58)
[2018-10-16] MEDS ORDERED: CATHETER FLUSH 10 ML SYR IV PRN (09:30)
--- NOTE | 2018-10-16 09:51 | Progress Note-Pre Operative ---
Pre-Operative Progress Note H&P Reviewed The H&P was reviewed, patient examined and no changes noted. Date Seen by Provider: Oct 16, 2018 Time Seen by Provider: 09:51 Date H&P Reviewed: Oct 16, 2018 Time H&P Reviewed: 09:51 Pre-Operative Diagnosis: symptomatic cholelithiasis MARIA C MARAVILLA DO Oct 16, 2018 09:51
[2018-10-16] MEDS ORDERED: BUPIVACAINE 0.5% 30 ML (SENSORCAINE) VIAL ONE (10:29)
[2018-10-16] MEDS ORDERED: LIDOCAINE/EPI 1%-1:100,000 (XYLOCAINE) 20ML ONE (10:29)
[2018-10-16] MEDS ORDERED: MIDAZOLAM 2 MG/2 ML (VERSED) VIAL ONE (10:45)
[2018-10-16] MEDS ORDERED: fentaNYL INJECTION 100 MCG/2 ML AMP ONE ×2 (10:45→11:27)
[2018-10-16] MEDS ORDERED: ROCURONIUM 10 MG/ML 5 ML SYRINGE IV ONE (10:45)
[2018-10-16] MEDS ORDERED: LIDOCAINE PF 2% 5 ML (XYLOCAINE) VIAL ONE (10:45)
[2018-10-16] MEDS ORDERED: ONDANSETRON 4 MG/2 ML (SDV) Z0FRAN ONE (10:45)
[2018-10-16] MEDS ORDERED: proPOfol 200 MG/20 ML (DIPRIVAN) VIAL IV ONE (10:45)
[2018-10-16] MEDS ORDERED: SEVOFLURANE (ULTANE) 15 ML INHAL SOLN ONE ×2 (10:45→12:08)
[2018-10-16] MEDS ORDERED: DEXAMETHASONE 10 MG/ML (DECADRON) 1 ML VIAL ONE (10:45)
[2018-10-16] MEDS ORDERED: SUGAMMADEX 500 MG/5 ML VIAL (BRIDION) IV ONE (12:03)
--- NOTE | 2018-10-16 12:09 | Progress Note-Post Operative ---
Post-Operative Progess Note Surgeon (s)/Hybrid Powertrain Development Engineer (s) Surgeon MARIA C MARAVILLA DO Hybrid Powertrain Development Engineer: Dr. Vera Pre-Operative Diagnosis symptomatic cholelithiasis Post-Operative Diagnosis same Procedure & Operative Findings Date of Procedure 10/16/18 Procedure Performed/Findings lap artie c ioc Anesthesia Type gen Estimated Blood Loss Estimated blood loss (mL): min Specimens/Packing Specimens Removed gallbladder MARIA C MARAVILLA DO Oct 16, 2018 12:09
[2018-10-16] MEDS ORDERED: PHENYLEPHRINE 100 MCG/ML 10 ML (ANESTHESIA) SYR ONE (12:11)
[2018-10-16] MEDS ORDERED: ACHD5005 PO (12:11)
[2018-10-16] MEDS ORDERED: GLYCOPYRROLATE 0.2 MG/ML (ROBINUL) 2 ML VIAL ONE (12:11)
--- NOTE | 2018-10-16 12:12 | Discharge Inst-Simple/Standard ---
Discharge Inst-Standard Discharge Medications New, Converted or Re-Newed RX: RX on Chart Patient Instructions/Follow Up Plan of Care/Instructions/FU: 2 weeks Alexey Activity as Tolerated: No Discharge Diet: Regular Diet Other Inst to Patient Follow up Appt: Make appointment for 2 weeks. Instructions: No lifting greater than 10 pounds. No strenuous activity. May shower in 24 hours, no tub bath or soaking. Use incentive spirometer at home as directed. No Smoking Skin/Wound Care: You have special glue over incisions it will fall off on its own. Symptoms to Report: Appetite Changes, Extremity Discoloration, Numbness/Tingling, Swelling Increased, Bleeding Excessive, Eyesight Changes, Pain Increased, Urine Color Change, Constipation(Persistent), Fever over 101 degree F, Pain/Pressure in chest, Urinating Difficulty, Cough Up/Vomit Blood, Heart Beat Irreg/Pounding, Pain/Pressure in jaw, Vaginal Bleeding Increase, Cramps in feet or legs, Lightheadedness, Pain/Pressure in shoulder, Diarrhea(Persistent), Memory Changes Suddenly, Questions/Concerns, Weight gain consecutive days, Dizziness/Fainting, Nausea/Vomiting, Shortness of Breath, Weight gain over 2 pounds. If eyes or skin turn yellow notify physician. If questions or concerns contact your physician Or seek help at emergency department. MARIA C MARAVILLA DO Oct 16, 2018 12:12
--- NOTE | 2018-10-16 12:24 | Diagnostic Imaging Report ---
EXAM: Fluoroscopy. INDICATION: Abdominal pain FINDINGS: Fluoroscopic assistance was provided for Dr. Blackburn during this laparoscopic cholecystectomy procedure. 8.4 seconds of fluoroscopy time was utilized. 39 spot films of the right upper quadrant were received from the OR. There are laparoscopic devices in place. There has been opacification of the common bile duct via a cystic duct catheter. The common bile duct does not appear to be dilated and is there is no defect within the duct to suggest a retained calculus. Contrast is seen extending into the small bowel. IMPRESSION: Fluoroscopic assistance was provided for Dr. Blackburn. Dictated by: Dictated on workstation # [id number]
[2018-10-16] MEDS ORDERED: HYDROmorphone 2 MG/ML VIAL (DILAUDID) IV ONE (12:30)
[2018-10-16] MEDS ORDERED: ONDANSETRON 4 MG/2 ML (SDV) Z0FRAN IVP PRN (12:30)
--- NOTE | 2018-10-16 13:38 | Anesthesia-General Post-Op ---
General Patient Condition Mental Status/LOC: Same as Preop Cardiovascular: Satisfactory Nausea/Vomiting: Absent Respiratory: Satisfactory Pain: Controlled Complications: Absent Post Op Complications Complications None Follow Up Care/Instructions Patient Instructions None needed. Anesthesia/Patient Condition Patient Condition Patient is doing well, no complaints, stable vital signs, no apparent adverse anesthesia problems. No complications reported per nursing. KATEY SHULTZ CRNA Oct 16, 2018 13:38
[2018-10-16] MEDS ORDERED: HYDROcodone/APAP 5 MG/325 MG (LORTAB) TAB PO ONE (14:00)
[2018-10-16] MEDS ORDERED: HYDROcodone/APAP 5 MG/325 MG (LORTAB) TAB ONE (14:18)
--- NOTE | 2018-10-16 19:07 | OPERATIVE REPORT ---
DATE OF SERVICE: 10/16/2018 PREOPERATIVE DIAGNOSIS: Symptomatic cholelithiasis. POSTOPERATIVE DIAGNOSIS: Symptomatic cholelithiasis. PROCEDURE: Laparoscopic cholecystectomy with intraoperative cholangiogram. SURGEON: Maria C Blackburn DO PRIMER AND POWDER CANNING LEADER: Dr. Vera, assisted in retraction, dissection and closure. ANESTHESIA: General. ESTIMATED BLOOD LOSS: Minimal. COMPLICATIONS: None. INDICATIONS: The patient is a 78-year-old female with symptomatic cholelithiasis. She and her family were explained risks and benefits of procedure and wished to proceed with procedure. Consent was signed in the chart. PROCEDURE: The patient was taken to the operating suite. She was prepped and draped in sterile fashion. Timeout was performed. Local site was infiltrated above the umbilicus. A 11-blade scalpel was used to make incision and dissection was taken down to the fascia, which was then scored, grasped and elevated and the abdomen was then entered. A 0 Vicryl was placed in a [place] fashion for closure at the end of the case. A balloon trocar was inserted in the abdomen and pneumoperitoneum was achieved. Under direct visualization of the laparoscope, a 5 mm trocar was placed in the subxiphoid region and two 5 mm trocars were placed in the right upper quadrant. Gallbladder was grasped, had loss of adhesions too, which had to be taken down both bluntly and with cautery dissection. The cystic artery was located and dissected out along with the cystic artery. Clips were placed on the proximal and distal portion of the cystic artery and this was then divided. Clips placed on the distal portion of the cystic duct, which was then partially transected. Arrow catheter was inserted into the duct and cholangiogram was performed. There were no filling defects. Contrast made its way into the duodenum without difficulty. The catheter was removed. Clips were placed in the proximal portion of the cystic duct and the duct was then completely transected. Hook cautery used to dissect the gallbladder from the gallbladder fossa achieving hemostasis. Once removed, it was placed in an Endobag and removed through the 12 mm trocar site. The abdomen was then irrigated and suctioned. Hemostasis had been achieved. The trocars were removed. A 0 Vicryl was placed at the beginning of the case was then tied closing the fascial defect. The skin was then closed using 4-0 Monocryl in a subcuticular fashion. The abdomen was then washed and dried and Skin Affix was placed over the incisions. The patient tolerated procedure well without any complications. She was taken to recovery room in stable condition. Job ID: [id number] DocumentID: [id number] Dictated Date: 10/16/2018 13:12:38 Cytotechnologist Date: 10/16/2018 19:07:24 Dictated By: MARIA C BLACKBURN DO
== END 2018-10-16 15:00 | disposition home or self-care (01) ==
LOC: SDC 08:50
PROVIDERS: ATTEND Surgery
DX: K80.10 Calculus of gallbladder with chronic cholecystitis without obstruction (principal); G35 Multiple sclerosis; M81.0 Age-related osteoporosis without current pathological fracture; E78.5 Hyperlipidemia, unspecified; Z87.891 Personal history of nicotine dependence; Z79.899 Other long term (current) drug therapy
CPT/HCPCS: 88304